=== PATIENT | female | born 1955 | race Caucasian/White ===

== ENCOUNTER 2019-01-04 02:00 | Emergency (ER) | payer MEDICARE, SELFPAY ==
[2018-01-26 10:07] VITALS: BMI 30.9
[2019-01-04 02:01] VITALS: BP 129/62; PULSE 99; RESP 20; TEMP 36.7; O2SAT 96; BMI 31.5
--- NOTE | 2019-01-04 02:31 | ED.VIS.GEN ---
History of Present Illness Chief Complaint: Back Informant: Patient Narrative: Stated she is being treated for sciatica mainly in her left buttock region but also is been bothering her on her right. She also feels some intermittent neuropathy in her left shoulder. This is been going on for approximately 6 weeks. She is being worked up by her family doctor. She has had some steroids with dexamethasone. She is been using Vicodin intermittently as well as intermittent Flexeril since July for her back. No injury. She did have x-rays. She is waiting on insurance for an MRI to rule out lumbar radiculopathy. She denies any loss of bowel or bladder function. Try to get an appointment to his office today for worsening pain but was unable to be seen so came in for pain control tonight. Current severity is moderate. Worse by bending and movement. - Past Medical History (1) Actinic keratosis Status: Chronic Comment: actinic lesion left mid dorsal forearm actinic lesion right upper cheek/right lower eyelid 3 mm actinic lesion right anterolateral arm (2) Benign keratosis Status: Chronic Comment: 4 mm benign keratosis left outer arm 1 cm benign keratosis dorsum right big toe near the naili (3) Family history of skin cancer Status: Chronic (4) Neoplasm of unspecified behavior of bone, soft tissue, and skin Status: Chronic Comment: 4 mm cutaneous horn lesion upper central forehead 4 mm erythematous lesion right anterolateral distal leg (5) Smoker Status: Chronic Past Medical History - Allergies and Home Meds Allergies/Adverse Reactions: Allergies Penicillins Allergy (Severe, Verified 01/04/19 02:00) Anaphylaxis tramadol Adverse Reaction (Verified 01/04/19 02:03) Nausea/Vom/Diarrhea BEE STINGS Allergy (Severe, Uncoded 01/04/19 02:00) Anaphylaxis Primary Care Physician: Flo Lopez DO [Primary Care Provider] - Prior records reviewed: Yes Past Medical History: - - See problem list Surgical History: - - Reviewed Smoking Status: Current every day smoker Alcohol: None Drugs: None Review of Systems General: Denies: Chills, Fever, Sweats Eyes: Denies: Visual changes - bilaterally, Diplopia ENT: Denies: Rhinorrhea, Sore throat Cardiovascular: Denies: Chest pain, Palpitations Respiratory: Denies: Dyspnea, Cough, Dyspnea on exertion Gastrointestinal: Denies: Abdominal pain, Nausea, Vomiting, Diarrhea, Melena, Hematochezia Genitourinary: Denies: Dysuria, Hematuria, Frequency Musculoskeletal: Reports: Back pain, Extremity Pain Skin: Denies: Rash, Wounds Neurological: Denies: Headache, Weakness, Numbness Physical Exam Vital Signs/Narrative: Vital Signs Temp Pulse Resp BP Pulse Ox 01/04/19 02:01 98.1 F 99 20 H 129/62 H 96 General: Well nourished, Well developed, No Acute Distress Head: Normocephalic, Atraumatic Eyes: Perrl, EOMI ENT: Moist mucous membranes, No rhinorrhea Neck: Supple, Nontender Cardiovascular: Regular rate, Regular rhythm, No murmurs Respiratory: No distress, CTA bilaterally, Chest nontender Abdomen: Soft, Nontender, Nondistended, Normal bowel sounds Back: Normal Inspection, - - Recently range of motion of the low back secondary to discomfort in the sciatic notch of the legs. Negative for: Nontender, CVA tenderness, Spinal tenderness Extremities: Nontender, No edema, - - Positive straight leg raise bilaterally. Normal pulses of the lower extremities bilateral.. Negative for: Calf Tenderness Skin: Normal color, No rash Neurological: Alert, Oriented x3, Cranial nerves II-XII grossly intact, Normal Strength, Normal Sensation Psychological: Normal affect, Normal Mood Diagnostic/Tx/Re-eval - Medical Decision Making Patient given injection of hydromorphone and Norflex. On reevaluation her pain is almost completely resolved. Resting comfortably. She has [place] tablets at home that she will continue to take. I discussed she could take a second 1 if needed as she is only instructed to take 1 every 6 hours. I do not think she has a cauda equina syndrome. I do not think she has an acute vascular emergency. I do not feel she has a aortic or iliac clot. She has warm and well-perfused lower legs with normal pulses. At this time I feel she can follow-up as an outpatient ED Disposition - Plan for ED Patient: Disposition: Home or Assisted Living Diagnosis: Lumbar radiculopathy Instructions: BACK PAIN w/ SCIATICA Referrals: Flo Lopez DO [Primary Care Provider] -
[2019-01-04] MEDS: HYDROmorphone 1 MG/ML Syringe IM (02:43)
[2019-01-04] MEDS: Orphenadrine 60 MG/2 ML Ampul IM (02:44)
[2019-01-04 03:26] VITALS: BP 130/68
== END 2019-01-04 03:26 | disposition home or self-care (01) ==
LOC: ED 03:14
PROVIDERS: Emergency Provider Emergency Medicine; Family Provider Family Medicine; PCP Family Medicine
DX: M54.16 Radiculopathy, lumbar region (principal); F17.200 Nicotine dependence, unspecified, uncomplicated; G62.9 Polyneuropathy, unspecified
CPT/HCPCS: 96372; 99282

== ENCOUNTER 2019-01-08 06:27 | Emergency (ER) | payer MEDICARE, SELFPAY ==
[2019-01-08 06:28] VITALS: BP 132/80; PULSE 86; RESP 18; TEMP 35.9; O2SAT 97; BMI 32.6
--- NOTE | 2019-01-08 06:52 | MRI_ITS ---
STUDY: MRI LUMBAR SPINE WITHOUT CONTRAST REASON FOR EXAM: Female, 63 years old. Left leg pain greater than right. TECHNIQUE: Standardized fat and water weighted pulse sequences were obtained in the sagittal and axial planes. COMPARISON: None FINDINGS: T12-L1: Normal endplates. Normal disc height, hydration and morphology. Normal bilateral facet joints. Normal central canal and bilateral lateral recesses. Normal bilateral intervertebral neural foramina. Normal lumbar lordosis. There is no substantial scoliosis. Normal conus medullaris that terminates at the L1 level. L1-2: Disc desiccation is present with no significant disc bulge, spinal canal narrowing or foraminal narrowing. No significant disc space loss with minimal facet arthropathy at this level. L2-3: Disc desiccation is present with no significant disc bulge, spinal canal narrowing or foraminal narrowing. No significant disc space loss with minimal facet arthropathy at this level. L3-4: Disc desiccation is present with no significant disc bulge, spinal canal narrowing or foraminal narrowing. No significant disc space loss with minimal facet arthropathy at this level. L4-5: Disc desiccation is present with no significant disc bulge, spinal canal narrowing or foraminal narrowing. No significant disc space loss with minimal facet arthropathy at this level. L5-S1: Disc desiccation and decreased disc space with broad-based disc bulge is present. There is a left disc extrusion extending to the left lateral recess abutting the exiting nerve root at this location and likely causing patient's symptomology. Normal visualized sacral ala. Normal visualized paraspinous soft tissue structures. MRI/Spine Lumbar (Routine) IMPRESSION: L5/S1 degenerative disc changes with left disc extrusion extending to the left lateral recess abutting the exiting S1 nerve root, clinically correlate for exiting left S1 nerve root radiculopathy. Electronically Signed: Nicholas Nina DO at 9:22 EST , Service support ,
--- NOTE | 2019-01-08 06:54 | ED.DCSUM_ITS ---
History of Present Illness Informant: Patient Onset: Weeks - 5 Context: Gradual Onset Timing: Continuous Quality: Aching Location: Lumbar, Buttock, Right Leg, Left Leg Current Severity: Severe Maximum Severity: Severe Worsened by: improves with: Movement, Ambulation, Night time pain Relieved by: Nothing Associated Symptoms: Tingling, Radiation to Right Leg, Radiation to Left Leg, - - No bowel or bladder dysfunction. No saddle anesthesia but numbness goes down both legs and her legs are feeling weak. Narrative: No history of prior back surgeries. Has had x-rays that were unremarkable, several rounds of steroids, currently has been on steroids for about 4 days w hich are not helping, pain is getting more severe despite taking Percocet which seems to be doing nothing. In the last 5 weeks she has noticed episodes of weakness in both legs, but that has become more persistent now she is having some trouble walking and her legs feel like Jell-O. She has not fallen or had any injuries due to this. She denies bowel or bladder dysfunction. No saddle anesthesia but she is having numbness down both legs and the pain goes down to the feet as well as the tingling. No abdominal pain. No fevers. Not an IV drug abuser. <Charli Eaton - Last Filed: 01/08/19 07:10> <Myrna Cosby - Last Filed: 01/08/19 09:54> Chief Complaint: Lower Extremity Injury - Past Medical History (1) Actinic keratosis Status: Chronic Comment: actinic lesion left mid dorsal forearm actinic lesion right upper cheek/right lower eyelid 3 mm actinic lesion right anterolateral arm (2) Neoplasm of unspecified behavior of bone, soft tissue, and skin Status: Chronic Comment: 4 mm cutaneous horn lesion upper central forehead 4 mm erythematous lesion right anterolateral distal leg <Charli Eaton - Last Filed: 01/08/19 07:10> Past Medical History Surgical History: - - Reviewed Lives: With Family Smoking Status: Current every day smoker Drugs: None <Charli Eaton - Last Filed: 01/08/19 07:10> <Myrna Cosby - Last Filed: 01/08/19 09:54> - Allergies and Home Meds Allergies/Adverse Reactions: Allergies Penicillins Allergy (Severe, Verified 01/08/19 06:34) Anaphylaxis tramadol Adverse Reaction (Verified 01/08/19 06:34) Nausea/Vom/Diarrhea BEE STINGS Allergy (Severe, Uncoded 01/08/19 06:34) Anaphylaxis Primary Care Physician: Flo Lopez DO [Primary Care Provider] - Review of Systems General: Denies: Chills, Fever, Sweats Eyes: Denies: Visual changes - bilaterally, Diplopia ENT: Denies: Rhinorrhea, Sore throat Cardiovascular: Denies: Chest pain, Palpitations Respiratory: Denies: Dyspnea, Cough, Dyspnea on exertion Gastrointestinal: Denies: Abdominal pain, Nausea, Vomiting, Diarrhea, Melena, Hematochezia Genitourinary: Denies: Dysuria, Hematuria, Frequency Musculoskeletal: Reports: Back pain. Denies: Neck pain, Extremity Pain Skin: Denies: Rash, Wounds Neurological: Reports: Weakness, Numbness. Denies: Headache <Charli Eaton - Last Filed: 01/08/19 07:10> Physical Exam Vital Signs/Narrative: Vital Signs Temp Pulse Resp BP Pulse Ox 01/08/19 06:28 96.6 F L 86 18 132/80 H 97 Inital Vital Signs reviewed: Yes General: Well nourished, Well developed Head: Normocephalic, Atraumatic Eyes: Perrl, EOMI ENT: Moist mucous membranes, No rhinorrhea Neck: Supple, Nontender Cardiovascular: Regular rate, Regular rhythm, No murmurs Respiratory: No distress, CTA bilaterally, Chest nontender Abdomen: Soft, Nontender, Nondistended, Normal bowel sounds Back: Normal Inspection, Nontender, Positive SLR - Right - Ipsilateral only, Positive SLR - Left - Ipsilateral only, - Extremeties: Nontender, No edema Skin: Normal color, No rash Neuro: Alert, Oriented, Weakness - Bilateral lower extremity weakness with bilateral knee extension as well as flexion, the latter is a little stronger. Has strong feet dorsiflexion but weak plantarflexion., Parasthesia - Slightly decreased sensation both lower extremities, - - Hyporeflexic throughout both lower extremities, symmetric. No clonus. Downgoing toes. Psychological: Normal affect, Normal Mood <Charli Eaton - Last Filed: 01/08/19 07:10> Vital Signs/Narrative: Vital Signs Temp Pulse Resp BP Pulse Ox 01/08/19 06:28 96.6 F L 86 18 132/80 H 97 <Myrna Cosby - Last Filed: 01/08/19 09:54> Diagnostic/Tx/Re-eval - Medical Decision Making Patient has objective bilateral lower extremity weakness and difficulty walking as a result, along with symptoms and exam findings consistent with bilateral sciatica. She does not have all of the classic cauda equina symptoms, however with the leg weakness I think a stat MRI is indicated in order to rule out cauda equina and conus medullaris syndromes. Nursing will obtain post void residual urine via bedside bladder scan. She has had no issues with saddle anesthesia or bowel incontinence so I do not think she has to have a rectal exam right now, as it will very likely be normal. I still think an MRI is indicated. Patient was seen just prior to shift change and checked out to the oncoming ED physician. Discussed at length with patient she is comfortable with this plan. IV morphine ordered. <Charli Eaton - Last Filed: 01/08/19 07:10> - Medical Decision Making The patient's examination at this time is done. Her MRI shows L5-S1 left nerve root impingement no signs of cauda equina please see the above MRI note finding Exam she states she feels markedly better she has full range of motion of both lower extremities without difficulty no neurologic abnormalities she is able to walk without difficulty, she is comfortable discharge home further management evaluation for the symptoms with her attending physicians and outpatient providers she indicates she has appointment to see them early this week and she will return for change in symptoms, she is wearing a few extra Percocet tablets she will be given four Home stable Impression final L5-S1 nerve root compression left on MRI <Myrna Cosby - Last Filed: 01/08/19 09:54> Disposition: Home <Myrna Cosby - Last Filed: 01/08/19 09:54> ED Disposition <Charli Eaton - Last Filed: 01/08/19 07:10> <Myrna Cosby - Last Filed: 01/08/19 09:54> - Plan for ED Patient: Referrals: Flo Lopez DO [Primary Care Provider] -
[2019-01-08] MEDS: Morphine 4 MG/ML Syringe IV (07:03)
[2019-01-08 07:24] LABS: Absolute Lymphocyte Count 1.28 X10^3/uL (0.83-4.51); Absolute Neutrophil Count 13.3 X10^3/uL (2.0-7.7); Basophil# 0.04 X10^3/uL; Basophil% 0.3 % (0-1); Eosinophil# 0.04 X10^3/uL; Eosinophils% 0.3 % (0-5); Hematocrit 44.3 % (37-47); Hemoglobin 14.5 g/dL (12.0-15.0); Lymphocyte # 1.28 X10^3/ul (4.0); Lymphocyte % 8.3 % (19-41); Mean Corp Hgb Conc 32.7 g/dL (32-36); Mean Corpuscular Hgb 30.4 pg (27.0-32.0); Mean Corpuscular Volume 92.9 fL (81-99); Mean Platelet Vol. 10.2 fl (6.2-12.0); Monocyte# 0.64 X10^3/uL; Monocyte% 4.2 % (0-10); NRBC Flagged by Analyzer 0 % (0-5); Neutrophil # 13.27 X10^3/uL (2.7-7.7); Neutrophil % 86.3 % (47-70); Platelet Count 273 K/mm3 (150-450); RBC Distribution Width CV 14.7 % (11.6-14.6); RBC Distribution Width SD 50.4 fl (35.1-43.9); Red Blood Count 4.77 M/mm3 (4.2-5.4); White Blood Count 15.4 K/mm3 (4.4-11.0)
--- NOTE | 2019-01-08 07:35 | ED.RN ---
pt complete mri questionaire and faxed to MRI.
[2019-01-08 07:37] LABS: Anion Gap 9 (5-15); BUN 16 mg/dL (7-18); BUN/Creat Ratio 18.3 RATIO (10-20); Calcium,Total 8.9 mg/dL (8.5-10.1); Chloride 99 mmol/L (98-107); Creatinine, Serum 0.88 mg/dL (0.55-1.02); EST Glomerular Filtration Rate 69 mL/min (>60); Est Glom Filt Rate - Afr Amer 83 mL/min (>60); Estimated Creatinine Clearance 52.72 ml/min; Glucose 102 mg/dL (74-106); Potassium 3.7 mmol/L (3.5-5.1); Sodium Level 138 mmol/L (136-145)
--- NOTE | 2019-01-08 07:50 | ED.RN ---
called imaging regarding mri. tech to return call after verifying [facility] [place]
[2019-01-08] MEDS: HYDROmorphone 0.5 MG/0.5 ML SYRINGE IV (08:16)
[2019-01-08 09:17] LABS: Bacteria 0 SEEN /hpf (None Seen); Mucous, Urine 0 SEEN /hpf (<or=2+); Red Blood Cells-Urine 0 SEEN /hpf (0-5); White Blood Cells 0 SEEN /hpf (0-5)
[2019-01-08 09:21] LABS: Color, Urine Yellow (Yellow); Glucose, Dipstick Normal (Normal); Ketone-Dipstick Negative (Negative); Leukocyte Esterase-Dipstick Negative /ul (Negative); Nitrite-Dipstick Negative (Negative); Occult Blood-Urine Negative /ul (Negative); Protein-Dipstick Negative (Negative); Urine Bilirubin Dipstick Negative (Negative); Urine Clarity Clear (Clear); Urine Urobilinogen Normal (Normal); Urine pH 6.5 (5.0 - 8.0)
[2019-01-08 09:29] LABS: Squamous Epithelial Cells - UA 0-5 SEEN /hpf (5-10)
--- NOTE | 2019-01-08 09:54 | ED.DEP ---
ED Disposition - Plan for ED Patient: Diagnosis: Lumbar disc disease L5-S1 Instructions: Relieving Back Pain Referrals: Flo Lopez DO [Primary Care Provider] - Additional Instructions: You have findings of lumbar disc disease with protrusion of the disc at L5-S1 follow-up with your outpatient providers return for change in symptoms
--- NOTE | 2019-01-08 09:58 | ED.DEP ---
ED Disposition - Plan for ED Patient: Diagnosis: Lumbar disc disease L5-S1 Instructions: Relieving Back Pain Prescriptions: Oxycodone HCl/Acetaminophen [Percocet 5/325] 1 tab PO Q4H PRN PRN #7 tab PRN Reason: Pain Prescription Printed Referrals: Flo Lopez DO [Primary Care Provider] - Additional Instructions: You have findings of lumbar disc disease with protrusion of the disc at L5-S1 follow-up with your outpatient providers return for change in symptoms
[2019-01-08 10:13] VITALS: BP 134/82; PULSE 87; RESP 16; TEMP 36.7; O2SAT 99
== END 2019-01-08 10:23 | disposition home or self-care (01) ==
LOC: ED 07:28
PROVIDERS: Emergency Medicine; Emergency Provider Emergency Medicine; Family Provider Family Medicine; PCP Family Medicine
DX: G54.4 Lumbosacral root disorders, not elsewhere classified (principal); R26.2 Difficulty in walking, not elsewhere classified; R53.1 Weakness; F17.200 Nicotine dependence, unspecified, uncomplicated; Z88.0 Allergy status to penicillin; Z88.8 Allergy status to other drugs, medicaments and biological substances; Z79.52 Long term (current) use of systemic steroids; Z79.899 Other long term (current) drug therapy
CPT/HCPCS: 72148; 80048; 81001; 85025; 96374; 96375; 99283; A4216

== ENCOUNTER → 2019-04-20 07:43 | Outpatient (CLI) | payer MEDICARE, SELFPAY ==
[2019-04-19 11:19] VITALS: BMI 32.6
[2019-04-20 08:41] LABS: AST(SGOT) 13 U/L (15-37); Alanine Aminotransfer ALT/SGPT 24 U/L (13-56); Albumin, Serum 3.6 g/dL (3.2-5.0); Alkaline Phosphatase 154 U/L (45-117); Bilirubin, Direct 0.09 mg/dL (0.00-0.30); Cholesterol 172 mg/dL (200); Globulin 4.3 g/dL (2.2-4.2); High Density Lipoprotein 62 mg/dL; Protein, Total 7.9 g/dL (6.4-8.2); Triglycerides 161 mg/dL; Very Low Density Lipoprotein 32 mg/dL (5-40)
== END ==
PROVIDERS: PCP Student in an Organized Health Care Education/Training Program; Referring Provider Internal Medicine Cardiovascular Disease; Visit Provider Internal Medicine Cardiovascular Disease
DX: I25.10 Atherosclerotic heart disease of native coronary artery without angina pectoris (principal); E78.5 Hyperlipidemia, unspecified
CPT/HCPCS: 36415; 80061; 80076

== ENCOUNTER → 2019-05-02 10:30 | Outpatient (CLI) | payer MEDICARE, SELFPAY ==
[2019-04-19 11:19] VITALS: BMI 32.6
--- NOTE | 2019-05-02 10:35 | MRI_ITS ---
EXAM DESCRIPTION: MR Lumbar Spine CLINICAL HISTORY: 63 years Female, LBP, bilat leg weakness/burning; hx prior surgery 11/2018 COMPARISON: Previous MRI of the lumbar spine obtained on 01/08/2019. TECHNIQUE: MRI lumbar spine was performed utilizing T1 and fast spin-echo T2-weighted and STIR weighted sagittal images followed by angled axial T1 and T2-weighted images obtained from above the L1-L2 intervertebral disc space level down to the L5-S1 level. Contrast material was intravenously injected and axial and sagittal postcontrast T1-weighted images of the lumbar spine were obtained. FINDINGS: T12-L1: On the sagittal images, the intervertebral disc and neural foramina appear to be normal. L1-L2: A minimally bulging disc is noted at this level with no evidence of disc herniation or spinal stenosis and neural foramina appear to be normal. L2-L3:A minimally bulging disc is noted at this level with no evidence of disc herniation or spinal stenosis and neural foramina appear to be normal. L3-L4: A minimally bulging disc is noted at this level with no evidence of disc herniation or spinal stenosis and neural foramina appear to be normal. L4-L5: The intervertebral disc and neural foramina appear to be normal. L5-S1: The patient has had a left hemilaminectomy at this level with resection of a herniated disc which was previously noted on the prior MRI obtained on 01/08/2019. Contrast material was intravenously injected and shows residual epidural fibrosis at the level of the previously resected herniated disc and epidural fibrosis noted at the left hemilaminectomy defect. No recurrent disc herniation or spinal stenosis is seen. Mild central foraminal stenosis is noted bilaterally without compression of the exiting L5 nerve roots.. Conus medullaris and lumbar nerve roots: The conus medullaris ends at the T12-L1 level and appears to be normal. The lumbar nerve roots appear to be normal. Lumbar spine: The lumbar spine appears to be in good position and alignment. The bone marrow of the lumbar vertebral bodies appears to be normal. No vertebral body compression fractures are seen. There is mild facet arthropathy noted at the L4-5 and L5-S1 levels bilaterally. MRI/Spine Lumbar W/WO Contrast IMPRESSION: Status post left hemilaminectomy at the L5-S1 level with residual epidural fibrosis and no evidence of recurrent disc herniation or spinal stenosis. Electronically Signed: Fuentes Serrato, at 13:23 EST Tel , Service support ,
== END ==
PROVIDERS: PCP Student in an Organized Health Care Education/Training Program
DX: Z48.811 Encounter for surgical aftercare following surgery on the nervous system (principal); M54.16 Radiculopathy, lumbar region
CPT/HCPCS: 72158; A9575

== ENCOUNTER 2019-05-08 10:30 | Outpatient (RCR) | payer MEDICARE, SELFPAY ==
--- NOTE | 2019-02-17 16:00 | HP.PTEVAL_ITS ---
Patient's Visit Information AUDREY OROURKE is a 63 year old F referred to Physical Therapy by MIKY DOMINGUEZ with a diagnosis of LUMBAR RADICULOPATHY. Date of Evaluation: 02/17/19 Physical Therapist: Leelee Bradford PT, Cert MDT - Visit Plan Frequency: 3x /Week Duration: 6-8 WKS Plan: MONITOR TOE SYMPTOMS AND INCLUDE TOE EX'S. 3X'S A WEEK X 6-8 WEEKS FOR POSTURE CORRECTION/STRENGTHENIG, INSTRUCTION IN PROPER BODY MECHANICS. CORE STRENGTHENING WITH A NEURTRAL SPINE ONLY UNTIL OK'D BY SURGEON. BACK BRACE AT ALL TIMES EXCEPT LYING DOWN UNTIL CLEARED TO WEAN OUT OF BRACE BY SURGEON. GAIT TRAINING. KIMBERLY LE ROM, STRETCHING AND STRENGTHENING. - Subjective Findings: S/P LUMBAR SURGERY 01/13/19. Work/Leisure: RETIRED. Disability: NO. Present symptoms: INTERMITTENT PAIN FROM THE KNEES DOWN. NO BACK PAIN. KIMBERLY F OOT AND HAND NUMBNESS, TINGLING, BURNING AND FREEZING. Present since: ABOUT 7 WEEKS BEFORE SURGERY. Pain Scale: WORST - 15/10, LEAST 0/10. Currently: 0/10. Commenced as a result of: BLOCKING A DOOR AND GOT PUSHED IN HER SIDE THEN THE NEXT DAY THE PAIN STARTED. TREATED IT HERSELF FOR A WEEK THEN WENT TO URGENT CARE. Symptoms at onset: LEFT LEG PAIN. EVENTUALLY HAD TO BE CARRIED IN TO THE ED. Worse: I WAKE UP WITH IT. Better: NOTHING HELPS EXCEPT PAIN MEDICINE. I'VE TRIED EVERYTHING. Disturbed sleep: YES. Previous history/Previous treatment: PATIENT DENIES ANY HISTORY OF BACK PROBLEMS PRIOR TO THIS EPISODE STARTED TOWARD THE END OF NOV 2018. Coughing/sneezing/straining: NEGATIVE. Gait: USING A WALKER OUTSIDE OF HOME BUT FURNITURE WALKS AT HOME. Difficulty initiating urinatin: YES - STATES HER SURGEON IS AWARE. Accidents: NO. Unexplained weight loss: NO. Imaging: NONE SINCE THE SURGERY. MRI PRIOR TO THE SURGERY 01/08/19: L5/S1 degenerative disc changes with left disc extrusion extending to the. left lateral recess abutting the exiting S1 nerve root, clinically. correlate for exiting left S1 nerve root radiculopathy. PMH: HTN, ASTHMA, HEART BLOCKAGE DISCOVERED BEFORE SURGERY - HEART CATH PENDING WHEN BACK SURGEON RELEASES HER. OTHER: PATIENT REPORTS SHE COULD WALK AND RUN BEFORE THIS INJURY. RELEASED TO DRIVE TWO WEEKS AFTER SURGERY. CURRENT RESTRICTIONS: NO LIFTING > 15 LBS. NO BENDING OR TWISTING. KEEP WEARING BACK BRACE UNTIL SURGICAL FOLLOW UP NEXT WEDNESDAY. REPORTS SHE HAS NOT HAD ANY TROUBLE WITH THE INCISION. STATES SHE HAS NOT BEEN DOING ANY EX'S EXCEPT ROTATING HER ANKLES. PATIENT REPORTS SHE HAS FALLEN TWICE SINCE THE SURGERY. ONE TIME SHE HAD A SNEEZING ATTACK AND SHE WENT DOWN ABOUT 3 WEEKS AFTER SURGERY (FACE PLANT) THEN FELL AGAIN ABOUT A WEEK AGO WHEN CAT GOT TANGLED UP UNDER HER FEET IN THE KITCHEN WITHOUT HER WALKER (I JUST WENT DOWN ON MY KNEE AND COULD GET BACK UP). - Objective Sitting/Standing Posture: POOR. Lordosis: REDUCED. Active Correction of posture: NE. Other Observations: INDEP GAIT INTO PT WITH FWW AND NO LOB. PATIENT WALKS WITH INCREASED TRUNK FLEXION AND DECREASED EVITA. PATIENT IS UE DEPENDENT TO TRANSFER FROM SIT TO STAND. Motor deficit: KIMBERLY LE WEAKNESS GROSSLY 4/5 WITH MMT'ING. ABLE TO MOVE TOES THROUGH FULL ROM AND RESIST MMT'ING BUT PATIENT REPORTS THEY DO NOT FEEL RIGHT. Sensory deficit: KIMBERLY LE LIGHT TOUCH SENSATION APPEARS INTACT AND SYMMETRICAL AND PATIENT REPORTS BEING ABLE TO FEEL HER TOES BUT THEY DON'T FEEL RIGHT. ROM deficit: TIGHT KIMBERLY LE HS'S. Reflexes: UNABLE TO ELICIT KIMBERLY LE DTR'S. Dural Signs: POSITIVE KIMBERLY LE'S. Lumbar mvmt loss: NT. Core strength: POOR. Palpation: INCISION LOOKS GOOD WITHOUT ANY SIGNS OF INFECTION. - Goals Goal 1:: DECREASE C/O KIMBERLY LE SX'S. Goal Time Frame: 4-6 Weeks Goal 2:: IMPROVE PERSONAL CARE, LIFTING, WALKING, SITTING, STANDING, SLEEP, SOCIAL LIFE, TRAVEL AND HOMEMAKING FUNCTION Goal Time Frame: 4-6 Weeks Goal 3:: INDEP AND SAFE GAIT ON ALL SURFACES WITH LEAST ASSISTIVE DEVICE Goal Time Frame: 4-6 Weeks Goal 4:: INDEP HEP FOR CONTINUED IMPROVEMENT ONCE FORMAL PHYSICAL THERPAY CONCLUDES. Goal Time Frame: 4-6 Weeks - Rehabilitation Potential Rehabilitation Potential: Good - Anticipated Interventions Patient/Client Instruction: Educate patient on: Condition, Plan of Care, Risk Factors, Benefits of Fitness Program For the Purpose of:: To improve self management Therapeutic Exercise to Include: Strength training, Body mechanics, Postural training, Gait and locomotor training, Dynamic Lumbar Stabilization, Scapular Strength/Stabilization For the Purpose of:: To decrease pain, To improve muscle performance and motor function, To increase tolerance to activity/condition/position, To improve ability of physical actions for home/community/work/leisure, To improve gait and locomotor functions Thank you for the opportunity to evaluate your patient. For Medicare and Medicare HMO plans, please review the plan of care and approve it. It will need to be FAXED BACK to us at [phone] for Medicare purposes. For Medicare only, by signing this I certify the plan of care. Please let me know if there are questions or concerns regarding this plan of care. Physician Signature: Date:
--- NOTE | 2019-03-17 11:57 | HP.PTREVAL_ITS ---
MIKY DOMINGUEZ, It has been my pleasure to treat AUDREY OROURKE over the last 10 visits for LUMBAR RADICULOPATHY. Please see the progress note below for an update on the physical therapy plan of care! Subjective: PATIENT REPORTS SHE IS A LOT BETTER. SHE REPORTS HER RIGHT LEG IS A LOT BETTER AND HER HANDS ARE PRETTY MUCH BACK TO NORMAL BUT HER LEFT LEG IS STILL VERY WEAK AND NOT IMPROVING. YESTERDAY AND TODAY HAVING SOME PAIN FROM THE KNEE DOWN AND THIS HAS BEEN COMING AND GOING. KIMBERLY DUEÑAS PAIN AND BURNING. ALSO HAVING BURNING IN TOES LEFT > RIGHT. LASTS TILL ABOUT MID DAY THEN GOES AWAY. AT LAST SURGICAL FOLLOW UP SHE REPORTS THE DOCTOR STATED WALKING WITH A WALKER MIGHT BE GOOD IT GETS. STATES SHE BEGGED FOR THERAPY.HAS NOT SEEN THE SURGEON SINCE STARTING THERAPY. PATIENT REPORTS SHE CALLED HER SURGEONS OFFICE TO CLARIFY HER RESTRICTIONS AND THEY TOLD HER SHE HAS NO RESTRICTIONS AT THIS TIME. NO LONGER USING A WALKER OR A CANE. WEANING OUT OF BACK BRACE. WEARS IT IF HER BACK GETS TIRED. PROLONGED STANDING MORE THAN ABOUT 10 MINUTES CAUSES A LOT OF BACK WEAKNESS AND SOME PAIN. USUALLY CAN'T FINISH DOING DISHES WITHOUT NEEDING TO SIT DOWN AND LEFT LEG STARTS TO GIVE OUT. HAS NOT FOLLOWED UP WITH [employer]INE REPAIRER YET. STATES SHE HAS A SURGICAL FOLLOW UP PENDING BUT NOT SURE WHEN. STATES SHE IS STILL LIMITED ON STEPS DUE TO LEFT LEG WEAKNESS. HAS DRIVEN TWICE NOW. DOES BETTER IN VAN. HARD TO GET IN AND OUT OF CAR. Objective/Function: PATIENT WAS SEEN TODAY FOR RE-ASSESSMENT OF PROGRESS TOWARD THE SET PT GOALS AND THE NEED FOR FURTHER PHYSICAL THERAPY VS READINESS FOR DISCHARGE. PATIENT IS MAKING SLOW PROGRESS WITH PT IN TERMS OF RIGHT LE FUNCTION BUT LLE IS NOT IMPROVING MORE SLOWLY. SHE IS A GOOD CANDIDATE TO CONTINUE PT AT THIS POINT AND PATIENT IS AGREEABLE. HER GAIT IS IMPROVING BUT HAS NOT NORMALIZED. SHE AMBULATES INDEP'LY INTO PT TODAY WITHOUT ANY ASSISTIVE DEVICES BUT WITH VERY SLOW EVITA AND A WIDE BASE OF SUPPORT. SHE IS UNSTEADY BUT ABLE TO REGAIN BALANCE INDEP'LY. SHE IS STILL UE DEPENDENT TO TRANSFER FROM SIT TO STAND AND REVERSE. Motor deficit: PATIENT STILL HAS KIMBERLY LE WEAKNESS GROSSLY 4/5 IN LLE AND 5/5 IN RIGHT LE EXCEPT HIP 4/5. ABLE TO MOVE TOES THROUGH FULL ROM AND RESIST MMT'ING BUT PATIENT REPORTS THEY DO NOT FEEL RIGHT. Sensory deficit: KIMBERLY LE LIGHT TOUCH SENSATION APPEARS INTACT AND SYMMETRICAL AND PATIENT REPORTS BEING ABLE TO FEEL HER TOES BUT THEY DON'T FEEL RIGHT. PATIENT REPORTS THEY DON'T FEEL TIGHT BEFORE THOUGH. LEFT IS WORSE THAN RIGHT. THEY TINGLE AND BURN BUT NOT BAD BEFORE. ROM deficit: TIGHT KIMBERLY LE HS'S. Dural Signs: POSITIVE KIMBERLY LE'S. Lumbar mvmt loss: FLEX: MIN TO MOD. EXT: ROXANA. RIGHT SG: MOD. LEFT SG: ROXANA - PINCHES. HAS TO MAKE VERY WIDE KASSIE TO PERFORM LUMBAR FLEXION TO AVOID LOB. Core strength: POOR. Palpation: INCISION IS WELL HEALED. Plan Plan: NO RESTRICTIONS. PROGRESS SLOWLY. WORK ON BALANCE. MONITOR TOE SYMPTOMS AND INCLUDE TOE EX'S. 3X'S A WEEK X 4WEEKS FOR POSTURE CORRECTION/STRENGTHENIG, INSTRUCTION IN PROPER BODY MECHANICS. CORE STRENGTHENING PROGRESS ROM TOLERATED. BACK BRACE NEEDED. GAIT TRAINING. KIMBERLY LE ROM, STRETCHING AND STRENGTHENING. Goals Goal 1:: DECREASE C/O KIMBERLY LE SX'S. Goal Time Frame: 4-6 Weeks Goal Progress: Progressing Goal 2:: IMPROVE PERSONAL CARE, LIFTING, WALKING, SITTING, STANDING, SLEEP, SOCIAL LIFE, TRAVEL AND HOMEMAKING FUNCTION Goal Time Frame: 4-6 Weeks Goal Progress: Progressing Goal 3:: INDEP AND SAFE GAIT ON ALL SURFACES WITH LEAST ASSISTIVE DEVICE Goal Time Frame: 4-6 Weeks Goal Progress: Progressing Goal 4:: INDEP HEP FOR CONTINUED IMPROVEMENT ONCE FORMAL PHYSICAL THERPAY CONCLUDES. Goal Time Frame: 4-6 Weeks Goal Progress: Progressing Anticipated Interventions Patient/Client Instruction: Educate patient on: Condition, Plan of Care, Risk Factors, Benefits of Fitness Program For the Purpose of:: To improve self management Therapeutic Exercise to Include: Strength training, Body mechanics, Postural training, Gait and locomotor training, Dynamic Lumbar Stabilization, Scapular Strength/Stabilization For the Purpose of:: To decrease pain, To improve muscle performance and motor function, To increase tolerance to activity/condition/position, To improve ability of physical actions for home/community/work/leisure, To improve gait and locomotor functions Please do not hesitate to contact me at [phone] by phone or Fax: if you have questions or concerns regarding this new plan of care! Sincerely, Leelee Bradford, PT, Cert MDT
--- NOTE | 2019-04-14 11:27 | HP.PTREVAL_ITS ---
MIKY DOMINGUEZ, It has been my pleasure to treat AUDREY OROURKE over the last 19 visits for LUMBAR RADICULOPATHY. Please see the progress note below for an update on the physical therapy plan of care! Subjective: PATIENT REPORTS THAT SHE IS CONTINUING TO MAKE PROGRESS BUT SHE IS STILL VERY WEAK IN HER LEGS LEFT > RIGHT. PATIENT SHE DOESN'T HAVE ANY PAIN ANY WHERE EXCEPT HER SHINS AND FEET. STATES HER HANDS SHAKE NOW THOUGH. PATIENT REPORTS HER BACK IS FINE BUT IT GETS TIRED AND IT GETS TENDER AFTER SOME OF THE EX'S. ANOTHER MRI HAS BEEN ORDERED AND APPROVED BY INSURANCE BUT NOT SCHEDULED YET. PATIENT REPORTS THE DOCTOR TOLD HER SHE SHOULD BE FURTHER ALONG THAN WHAT SHE IS SO HE ORDERED THE MRI. FAMILY DOCTOR MIKE'T PENDING NEXT WEEK - STATES SHE WOULD LIKE A SECOND OPINION FROM ANOTHER NEUROSURGEON. PATIENT REPORTS SHE TOOK A PERCOCET THE OTHER DAY FOR HER LOWER LEG AND FOOT PAIN AND IT DIDN'T HELP AND SHE HAD A REACTION TO IT. SHOWING BRUISING ON HER ARMS WHERE SHE SCRATCHED. PATIENT REPORTS HER LEFT LEG IS GETTING A LITTLE STRONGER NOW AND SHE CAN TELL FROM BEING ABLE TO INCREASE HER EXCERSES IN HERE AND GOING UP STEPS. SHE CAN WALK MORE TOO BUT IF SHE WALKS TOO MUCH HER BACK HURTS (WALKING ABOUT 1,000 FEET NOW (ON [address]). Objective/Function: PATIENT WAS SEEN TODAY FOR RE-ASSESSMENT OF PROGRESS TOWARD THE SET PT GOALS AND THE NEED FOR FURTHER PHYSICAL THERAPY VS READINESS FOR DISCHARGE. PATIENT IS CONTINUIING TO MAKE SLOW PROGRESS WITH PT IN TERMS OF RIGHT LE FUNCTION BUT ALSO LLE NOW. SHE IS A GOOD CANDIDATE TO CONTINUE PT AT THIS POINT AND PATIENT IS AGREEABLE. HER GAIT IS STILL IMPROVING IN TERMS OF DISTANCE BUT HAS NOT NORMALIZED. SHE AMBULATES INDEP'LY INTO PT TODAY WITHOUT ANY ASSISTIVE DEVICES BUT STILL WITH SLOW EVITA AND A WIDE BASE OF SUPPORT. SHE IS UNSTEADY BUT ABLE TO REGAIN BALANCE INDEP'LY. SHE IS STILL UE DEPENDENT TO TRANSFER FROM SIT TO STAND AND REVERSE BUT JUST WITH HANDS ON LEGS NOT ARMS OF CHAIR NOW. SHE HAS TO USE BOTH HANDS TO GET UP NOT JUST ONE. Motor deficit: PATIENT STILL HAS KIMBERLY LE WEAKNESS GROSSLY 4/5 IN LLE AND 5/5 IN RIGHT LE EXCEPT HIP 4/5. ABLE TO MOVE TOES THROUGH FULL ROM AND RESIST MMT'ING BUT PATIENT REPORTS THEY DO NOT FEEL RIGHT. PATIENT REPORTS HER TOE TIGHTNESS IS STILL BETTER THAN IT WAS ORIGINALLY BUT STAYING THE SAME NOW. Sensory deficit: KIMBERLY LE LIGHT TOUCH SENSATION APPEARS INTACT AND SYMMETRICAL AND PATIENT REPORTS BEING ABLE TO FEEL HER TOES BUT THEY DON'T FEEL RIGHT. THEY TINGLE AND BURN BUT NOT BAD BEFORE. ROM deficit: TIGHT KIMBERLY LE HS'S. Dural Signs: POSITIVE KIMBERLY LE'S. Lumbar mvmt loss: FLEX: MIN TO MOD. EXT: ROXANA. RIGHT SG: MOD. LEFT SG: ROXANA - CATCHES. STILL HAS TO MAKE VERY WIDE KASSIE TO PERFORM LUMBAR FLEXION TO AVOID LOB. Core strength: POOR Plan Plan: *Progress hip flexor/quad stretch to HEP next appt. *SUPERVISION TO CONTACT GUARD NEEDED WITH STANDING EX'S FOR SAFETY. SLOWLY WORK TOWARDS INDEP GYM PROGRAM WITH Stand Offer [employer]. NO RESTRICTIONS. PROGRESS SLOWLY. WORK ON BALANCE. MONITOR TOE SYMPTOMS AND INCLUDE TOE EX'S. FOR POSTURE CORRECTION/STRENGTHENIG, INSTRUCTION IN PROPER BODY MECHANICS. CORE STRENGTHENING PROGRESS ROM TOLERATED. BACK BRACE NEEDED. GAIT TRAINING. KIMBERLY LE ROM, STRETCHING AND STRENGTHENING. Goals Goal 1:: DECREASE C/O KIMBERLY LE SX'S. Goal Time Frame: 4-6 Weeks Goal Progress: Progressing Goal 2:: IMPROVE PERSONAL CARE, LIFTING, WALKING, SITTING, STANDING, SLEEP, SOCIAL LIFE, TRAVEL AND HOMEMAKING FUNCTION Goal Time Frame: 4-6 Weeks Goal Progress: Progressing Goal 3:: INDEP AND SAFE GAIT ON ALL SURFACES WITH LEAST ASSISTIVE DEVICE Goal Time Frame: 4-6 Weeks Goal Progress: Progressing Goal 4:: INDEP HEP FOR CONTINUED IMPROVEMENT ONCE FORMAL PHYSICAL THERPAY CONCLUDES. Goal Time Frame: 4-6 Weeks Goal Progress: Progressing Anticipated Interventions Patient/Client Instruction: Educate patient on: Condition, Plan of Care, Risk Factors, Benefits of Fitness Program For the Purpose of:: To improve self management Therapeutic Exercise to Include: Strength training, Body mechanics, Postural training, Gait and locomotor training, Dynamic Lumbar Stabilization, Scapular Strength/Stabilization For the Purpose of:: To decrease pain, To improve muscle performance and motor function, To increase tolerance to activity/condition/position, To improve ability of physical actions for home/community/work/leisure, To improve gait and locomotor functions Please do not hesitate to contact me at [phone] by phone or if you have questions or concerns regarding this new plan of care! Sincerely, Leelee Bradford, PT, Cert MDT
--- NOTE | 2019-06-06 12:45 | HP.PT.NRP ---
AUDREY OROURKE was seen in my office for initial evaluation on 02/17/19. The following Plan of Care was established for this patient: Initial Frequency: 3x /Week Initial Duration: 6-8 WKS Patient/Client Instruction: Educate patient on: Condition, Plan of Care, Risk Factors, Benefits of Fitness Program For the Purpose of:: To improve self management Therapeutic Exercise to Include: Strength training, Body mechanics, Postural training, Gait and locomotor training, Dynamic Lumbar Stabilization, Scapular Strength/Stabilization For the Purpose of:: To decrease pain, To improve muscle performance and motor function, To increase tolerance to activity/condition/position, To improve ability of physical actions for home/community/work/leisure, To improve gait and locomotor functions This patient was last seen in our office 05/08/19. Pertinent comments regarding their Physical therapy will appear below: This patient has not returned to Physical Therapy and is appropriate to return to MD for further follow-up as needed. At this point I will be discontinuing this patient from physical therapy. I would be happy to see this patient again in the future if found appropriate by the physician. Thank you! Leelee Bradford, PT, Cert MDT
== END 2019-05-08 19:00 | disposition home or self-care (01) ==
LOC: PT 10:30
PROVIDERS: Family Provider Family Medicine; PCP Family Medicine
DX: Z48.811 Encounter for surgical aftercare following surgery on the nervous system (principal)
CPT/HCPCS: 97110; 97162; 97164; 97530

== ENCOUNTER → 2019-06-05 12:56 | Outpatient (CLI) | payer MEDICARE, SELFPAY ==
[2019-04-19 11:19] VITALS: BMI 32.6
== END ==
PROVIDERS: PCP Student in an Organized Health Care Education/Training Program; Referring Provider Student in an Organized Health Care Education/Training Program; Visit Provider Student in an Organized Health Care Education/Training Program
DX: R00.0 Tachycardia, unspecified (principal)
CPT/HCPCS: 93225; 93226

== ENCOUNTER 2019-06-16 16:37 | Emergency (ER) | payer MEDICARE, SELFPAY ==
[2019-04-19 11:19] VITALS: BMI 32.6
[2019-06-16 16:38] VITALS: BP 111/67; PULSE 98; RESP 16; TEMP 36.6; O2SAT 97; BMI 25.7
--- NOTE | 2019-06-16 17:06 | EKG12_ITS ---
Test Reason : PALPATATIONS Blood Pressure : / mmHG Vent. Rate : 092 BPM Atrial Rate : 092 BPM P-R Int : 138 ms QRS Dur : 080 ms QT Int : 350 ms P-R-T Axes : 042 -29 035 degrees QTc Int : 432 ms Normal sinus rhythm Inferior infarct , age undetermined Abnormal ECG Confirmed by TROY PARKER, LAKESHA ([id number]), video effects editor LEONEL SMITH ([id number]) on 06/19/2019 8:38:32 AM Referred By: BEATA Confirmed By:LAKESHA SIMMONS MD
--- NOTE | 2019-06-16 17:07 | ED.DCSUM_ITS ---
History of Present Illness Chief Complaint: Palpitations Detail of Chief Complaint: Low-grade fever, cough Informant: Patient Onset: Today Narrative: Patient is been having intermittent palpitations for the past 4 weeks. She recently wore 48-hour Holter monitor reportedly had runs of SVT. She states she contacted her certified teacher assistant this week who stated there is nothing different to do. Patient states earlier this afternoon she developed rigors and mild congestion and cough. She checked her heart rate and it was 158. This lasted for a few hours and then spontaneously resolved. She was able to get a hold of someone at her PCPs office who wanted her evaluated in the emergency room. Patient denies having chest pain during these episodes. She denies lightheadedness or dizziness. - Past Medical History (1) SVT (supraventricular tachycardia) Status: Chronic (2) Atherosclerosis of coronary artery of [place] heart without angina pectoris Status: Chronic (3) Essential hypertension Status: Chronic (4) History of non-ST elevation myocardial infarction (NSTEMI) Status: Chronic (5) Hyperlipidemia Status: Chronic (6) Nicotine dependence Status: Chronic Past Medical History - Allergies and Home Meds Allergies/Adverse Reactions: Allergies Penicillins Allergy (Severe, Verified 06/16/19 17:40) Anaphylaxis clemastine [From Tavist] Allergy (Intermediate, Verified 06/16/19 17:40) Unknown pseudoephedrine [From Tavist] Allergy (Intermediate, Verified 06/16/19 17:40) Unknown oxycodone Allergy (Verified 06/16/19 17:40) Hives tramadol Adverse Reaction (Verified 06/16/19 17:40) Nausea/Vom/Diarrhea BEE STINGS Allergy (Severe, Uncoded 06/16/19 17:40) Anaphylaxis Primary Care Physician: Flo Lopez DO [COURTESY STAFF PHYSICIAN] - Doctors: Dr. Hernandez Prior records reviewed: Yes Surgical History: - - Reviewed Lives: Spouse/ Significant Other Smoking Status: Current every day smoker Review of Systems General: Reports: Chills, Fever Eyes: Denies: Visual changes - bilaterally ENT: Reports: - - Mild congestion. Denies: Bilateral ear pain Cardiovascular: Reports: Palpitations, Heart racing. Denies: Chest pain Respiratory: Reports: Cough. Denies: Dyspnea, Sputum Gastrointestinal: Denies: Abdominal pain, Nausea, Vomiting, Diarrhea Genitourinary: Denies: Dysuria Musculoskeletal: Denies: Extremity Pain Skin: Denies: Rash Neurological: Denies: Headache Hematologic: Denies: Easy bruising Allergy: Denies: Uticaria Physical Exam Vital Signs/Narrative: Vital Signs Temp Pulse Resp BP Pulse Ox 06/16/19 16:38 97.8 F 98 16 111/67 97 Inital Vital Signs reviewed: Yes General: Well nourished, Well developed Head: Normocephalic Eyes: Perrl, EOMI ENT: Moist mucous membranes Neck: Supple Cardiovascular: Regular rate, Regular rhythm Respiratory: No distress, Wheezing - Expiratory wheezes Abdomen: Soft, Nontender Back: Nontender Extremities: Nontender Skin: Normal color, No rash Neurological: Alert, Oriented x3 Psychological: Normal affect Diagnostic/Tx/Re-eval Impressions Chest X-Ray 06/16/19 17:30 IMPRESSION: No acute cardiopulmonary pathology Electronically Signed: Mekhi Fernando MD at 17:52 EDT , Service support , 06/16/19 17:30 Chest 1 View (Portable) [RAD] Stat Laboratory Results 06/16/19 06/16/19 17:30 17:30 WBC 12.5 H RBC 4.68 Hgb 13.9 Hct 43.2 MCV 92.3 MCH 29.7 MCHC 32.2 RDW Std Deviation 49.1 H RDW Coeff of Olegario 14.4 Plt Count 228 MPV 11.2 Immature Gran % (Auto) 0.300 Neut % (Auto) 85.4 H Lymph % (Auto) 7.9 L Murray % (Auto) 5.8 Eos % (Auto) 0.4 Baso % (Auto) 0.2 Absolute Neuts (auto) 10.7 H Absolute Lymphs (auto) 0.99 Nucleated RBC % 0 Sodium 135 L Potassium 3.8 Chloride 102 Carbon Dioxide 28.0 Anion Gap 5 BUN 9 Creatinine 0.77 Estim Creat Clear Calc 60.25 Est GFR (MDRD) Af Amer 96 Est GFR (MDRD) Non-Af 79 BUN/Creatinine Ratio 11.6 Glucose 107 H Calcium 9.3 Troponin I < 0.015 TSH 0.77 - EKG Initial EKG Interpretation: Sinus Rhythm - Sinus at 92 with no acute ischemia. - Medical Decision Making Patient is observed on monitoring analyst with no evidence of arrhythmia. I was able to review her Holter monitor report. Patient had several supraventricular beats, but no runs of SVT. I spoke with Dr. Hernandez, her certified teacher assistant. No changes are to be made to her medications at this time. If she continues to have further episodes and we can document true tachycardia, such as her reported heart rate of 158, she may require repeat Holter monitor. No changes need to be made at this time. ED Disposition - Plan for ED Patient: Disposition: Home or Assisted Living Diagnosis: Viral URI, Tachycardia Instructions: ED Palpitations, ED URI Viral Referrals: Jaydon Hernandez MD [STAFF PHYSICIAN] -
--- NOTE | 2019-06-16 17:30 | RAD_ITS ---
STUDY: X-RAY CHEST REASON FOR EXAM: Female, 63 years old. SENT BY PCP FOR NUMEROUS COMPLAINTS, PALPITATIONS, and quot;SHIVERING and quot;, TEMP 100.4, COUGH. TECHNIQUE: AP portable COMPARISON: None. FINDINGS: The lungs are clear and expanded. There is no demonstrated pleural abnormality. Normal size heart. Normal mediastinum and nitin. Normal visualized pulmonary arteries. Mildly calcified aortic arch and descending thoracic aorta. Normal visualized thoracic spine. Normal visualized ribs, clavicles, and shoulders. There is no demonstrated abnormality of the visualized soft tissue structures of the upper abdomen. RAD/Chest 1 View (Portable) IMPRESSION: No acute cardiopulmonary pathology Electronically Signed: Mekhi Fernando MD at 17:52 EDT , Service support ,
[2019-06-16 17:32] VITALS: BP 105/75; PULSE 87; RESP 28; TEMP 36.8; O2SAT 96
[2019-06-16 17:47] LABS: Absolute Lymphocyte Count 0.99 X10^3/uL (0.83-4.51); Absolute Neutrophil Count 10.7 X10^3/uL (2.0-7.7); Basophil# 0.02 X10^3/uL; Basophil% 0.2 % (0-1); Eosinophil# 0.05 X10^3/uL; Eosinophils% 0.4 % (0-5); Hematocrit 43.2 % (37-47); Hemoglobin 13.9 g/dL (12.0-15.0); Lymphocyte # 0.99 X10^3/ul (4.0); Lymphocyte % 7.9 % (19-41); Mean Corp Hgb Conc 32.2 g/dL (32-36); Mean Corpuscular Hgb 29.7 pg (27.0-32.0); Mean Corpuscular Volume 92.3 fL (81-99); Mean Platelet Vol. 11.2 fl (6.2-12.0); Monocyte# 0.73 X10^3/uL; Monocyte% 5.8 % (0-10); NRBC Flagged by Analyzer 0 % (0-5); Neutrophil # 10.69 X10^3/uL (2.7-7.7); Neutrophil % 85.4 % (47-70); Platelet Count 228 K/mm3 (150-450); RBC Distribution Width CV 14.4 % (11.6-14.6); RBC Distribution Width SD 49.1 fl (35.1-43.9); Red Blood Count 4.68 M/mm3 (4.2-5.4); White Blood Count 12.5 K/mm3 (4.4-11.0)
[2019-06-16 18:02] LABS: Anion Gap 5 (5-15); BUN 9 mg/dL (7-18); BUN/Creat Ratio 11.6 RATIO (10-20); Calcium,Total 9.3 mg/dL (8.5-10.1); Chloride 102 mmol/L (98-107); Creatinine, Serum 0.77 mg/dL (0.55-1.02); EST Glomerular Filtration Rate 79 mL/min (>60); Est Glom Filt Rate - Afr Amer 96 mL/min (>60); Estimated Creatinine Clearance 60.25 ml/min; Glucose 107 mg/dL (74-106); Potassium 3.8 mmol/L (3.5-5.1); Sodium Level 135 mmol/L (136-145); Thyroid Stim Hormone (TSH) 0.77 uIU/mL (0.358-3.74)
[2019-06-16 19:05] VITALS: BP 123/89; PULSE 84; RESP 16; O2SAT 97
== END 2019-06-16 19:06 | disposition home or self-care (01) ==
PROVIDERS: Emergency Provider Emergency Medicine; PCP Student in an Organized Health Care Education/Training Program
DX: I47.1 Supraventricular tachycardia (principal); J06.9 Acute upper respiratory infection, unspecified; I25.10 Atherosclerotic heart disease of native coronary artery without angina pectoris; I25.2 Old myocardial infarction; I10 Essential (primary) hypertension; E78.5 Hyperlipidemia, unspecified; F17.200 Nicotine dependence, unspecified, uncomplicated
CPT/HCPCS: 71045; 80048; 84443; 84484; 85025; 93005; 99284

== ENCOUNTER → 2019-12-19 09:42 | Outpatient (CLI) | payer MEDICARE, SELFPAY ==
--- NOTE | 2019-12-19 09:44 | ART_ITS ---
Reason For Study: Decreased pulses in feet Procedure A bilateral lower extremity continuous wave Doppler with analog waveform analysis,segmental pressures,and ankle brachial indexes without exercise. Left Segmental Pressures Left brachial= 114mmHg. Left posterior tibial artery = 116mmHg. Left dorsalis pedis artery = 103mmHg. The left dorsalis pedis waveforms are triphasic. The left posterior tibial artery waveforms are triphasic. Right Segmental Pressures Right brachial= 114mmHg. Right posterior tibial artery = 115mmHg. Right dorsalis pedis artery = 108mmHg. The right dorsalis pedis waveforms are biphasic. The right posterior tibial artery waveforms are triphasic. Indices The right ankle brachial index by the dorsalis pedis is 0.95. The right ankle brachial index by the posterior tibial artery is 1.01. The left ankle brachial index by the dorsalis pedis is 0.90. The left ankle brachial index by the posterior tibial artery is 1.02. Interpretation Summary Normal bilateral lower extremity PT ankle-brachial indices at rest Mild disease bilateral lower extremity DP ankle-brachial indices at rest Abnormal bilateral digital volume pulse recordings consistent with temperature effect or distal small vessel disease Ordering Physician: Jack Terry Referring Physician: Jack Terry Performed By: Celsa Arrington RVT and Student
== END ==
PROVIDERS: PCP Student in an Organized Health Care Education/Training Program; Referring Provider Student in an Organized Health Care Education/Training Program; Visit Provider Student in an Organized Health Care Education/Training Program
DX: R09.89 Other specified symptoms and signs involving the circulatory and respiratory systems (principal)
CPT/HCPCS: 93923

== ENCOUNTER 2020-05-14 07:10 | Outpatient (RCR) | payer MEDICARE, SELFPAY ==
[2020-04-23 07:44] VITALS: BMI 33.1
[2020-05-14] MEDS: COVID-19 VACC, MRNA(PFIZER)/PF 30 MCG/0.3 ML SYRINGE IM (10:17)
[2020-06-04] MEDS: COVID-19 VACC, MRNA(PFIZER)/PF 30 MCG/0.3 ML SYRINGE IM (09:45)
== END 2020-08-13 23:59 ==
LOC: IMMUN 07:10
PROVIDERS: PCP Student in an Organized Health Care Education/Training Program; Referring Provider Family Medicine; Visit Provider Family Medicine
DX: Z23 Encounter for immunization (principal)
CPT/HCPCS: 0001A; 0002A; 91300

== ENCOUNTER → 2020-06-12 05:44 | Outpatient (CLI) | payer MEDICARE, SELFPAY ==
[2020-04-23 07:44] VITALS: BMI 33.1
--- NOTE | 2020-06-12 19:00 | STRESSREP ---
Stress Test Report Pharmacologic myocardial perfusion stress test. 64-year-old lady with a history of back pain for preop evaluation. Medications atenolol hydrochlorothiazide and aspirin. Resting EKG demonstrates normal sinus rhythm with a rate of 80 bpm. Resting blood pressure is 130/84 mmHg. 0.4 mg of regadenoson was infused per usual protocol followed by rapid intravenous saline flush injection continuous EKG monitoring was performed. The maximum heart rate attained was 117 bpm which was 75% of max impacted heart rate the maximum workload was 1 metabolic equivalent. At rest there were no ST or T wave changes noted to suggest abnormal flow reserve and at peak infusion nonspecific ST changes were noted which did not meet the criteria for abnormal flow reserve. The final blood pressure was 120/82 mmHg. Myocardial perfusion protocol. 11.0 mCi of technetium 99m sestamibi was injected at rest. 0.4 mg of regadenoson was infused per usual protocol. At peak infusion 34.1 mCi of technetium 99m sestamibi was injected stress images were obtained stress and rest images were reconstructed and compared in the short axis vertical long horizontal long axis. Gated images were also obtained Perfusion SPECT analysis: Review of the stress images demonstrate normal uptake of tracer noted in all areas of the myocardium. The resting images similar demonstrate normal uptake of tracer noted in all areas of the myocardium. No obvious areas of reversibility are noted suggest ischemia and no previous infarct is noted. Gated SPECT analysis: The gated ejection fraction is noted to be 83%. Conclusion: Normal pharmacologic myocardial perfusion stress test. Preserved ejection fraction.
== END ==
PROVIDERS: PCP Student in an Organized Health Care Education/Training Program; Referring Provider Student in an Organized Health Care Education/Training Program; Visit Provider Student in an Organized Health Care Education/Training Program
DX: I25.10 Atherosclerotic heart disease of native coronary artery without angina pectoris (principal); I45.10 Unspecified right bundle-branch block; R73.01 Impaired fasting glucose; E78.2 Mixed hyperlipidemia
CPT/HCPCS: 78452; 93017; A9500; A4216; J2785

== ENCOUNTER 2021-02-03 10:00 | Outpatient (RCR) | payer MEDICARE, SELFPAY ==
--- NOTE | 2020-11-13 13:45 | HP.PTEVAL_ITS ---
Patient's Visit Information AUDREY OROURKE is a 65 year old F referred to Physical Therapy by Dr. Jack Terry DO with a diagnosis of SPINAL STENOSIS AND RIGHT KNEE PAIN. Date of Evaluation: 11/13/20 Physical Therapist: Leelee Bradford PT, Cert MDT - Visit Plan Frequency: 2-3x /Week Duration: 4-6 Weeks Plan: PATIENT IS A FALL RISK BUT REFUSES TO USE ASSISTIVE DEVICE. START SLOW - PATIENT HAS HISTORY OF DELAYED ONSET OF PAIN. AQUATIC THERAPY FOR PAIN RELEIF, POSTURE CORRECTION/STRENGTHENING, INSTRUCTION IN APPROPRIATE BODY MECHANICS AND ACTIVITY MODIFICATIONS. DLS WITH A NEUTRAL SPINE ONLY. KIMBERLY LE ROM, STRETCHING AND STRENGTHENING. HEP INSTRUCTION. - Subjective Work/Leisure: RETIRED. Disability: NO. Present symptoms: LOW BACK AND KIMBERLY SHARP LEG PAIN. KIMBERLY CALF AND FOOT NUMBNESS/TINGLING. RIGHT KNEE PAIN. Present since: RIGHT KNEE PAIN STARTED ABOUT 5 WEEKS AGO. CHRONIC LBP AND LEG PAIN SINCE 2019. Pain Scale: R KNEE PAIN: WORST 15/10, LEAST 3/10. LOW BACK/LEG PAIN: WORST 15/10, LEAST 5/10. Currently: RIGHT KNEE PAIN: 6/10, LOW BACK/LEG PAIN: 6/10. Commenced as a result of: KNEE - NO APPARENT REASON. LOW BACK PAIN - FROM BEING PUSHED. Worse: WALKING, CLIMBING STAIRS, GETTING UP FROM A CHAIR, ROLLING OVER...ANYTHING CAN SET IT OFF. Better: LUMBAR STIMULATOR, HEATING PAD AND VICODIN. Disturbed sleep: YES. Previous history/Previous treatment: LUMBAR LAMINECTOMY 2018, SPINAL STIMULATOR JUNE 2020, RIGHT KNEE CORTISONE INJECTION. 2 SPINAL INJECTIONS PRIOR TO THE STIMULAOR PLACEMENT. PATIENT REPORTS THE RIGHT KNEE CORTISONE INJECTION HELPED. SHE ALSO REPORTS THE SPINAL STIMULATOR IS HELPING. Coughing/sneezing/straining: UNKNOWN. Gait: FALLS. LAST FALL WAS ABOUT 3 WEEKS AGO - PATIENT DENIES ANY MAJOR INJURIES. PATIENT REPORTS SHE FELL GETTING UP IN THE MIDDLE OF THE NIGHT TO GO TO THE BATHROOM AND SHE JUST HIT THE FLOOR FOR NO APPARENT REASON. PATIENT REPORTS SHE DOES NOT USE ASSISTIVE DEVICES AND REFUSES TO USE ASSISTIVE DEVICES. PATIENT REPORTS USE OF ASSISTIVE DEVICES HAVE BEEN RECOMMENDED. Difficulty initiating urination: NO. Accidents: NO. Unexplained weight loss: NO. Imaging: MRI OF LUMBAR SPINE 2020: EXAM DESCRIPTION: MR Lumbar Spine. CLINICAL HISTORY: 63 years Female, LBP, bilat leg weakness/burning; hx prior surgery 11/2018. COMPARISON: Previous MRI of the lumbar spine obtained on 01/08/2019. TECHNIQUE: MRI lumbar spine was performed utilizing T1 and fast spin-echo T2-weighted. and STIR weighted sagittal images followed by angled axial T1 and. T2-weighted images obtained from above the L1-L2 intervertebral disc space. level down to the L5-S1 level. Contrast material was intravenously. injected and axial and sagittal postcontrast T1-weighted images of the. lumbar spine were obtained. FINDINGS: T12-L1: On the sagittal images, the intervertebral disc and neural foramina. appear to be normal. L1-L2: A minimally bulging disc is noted at this level with no evidence of. disc herniation or spinal stenosis and neural foramina appear to be normal. L2-L3:A minimally bulging disc is noted at this level with no evidence of. disc herniation or spinal stenosis and neural foramina appear to be normal. L3-L4: A minimally bulging disc is noted at this level with no evidence of. disc herniation or spinal stenosis and neural foramina appear to be normal. L4-L5: The intervertebral disc and neural foramina appear to be normal. L5-S1: The patient has had a left hemilaminectomy at this level with. resection of a herniated disc which was previously noted on the prior MRI. obtained on 01/08/2019. Contrast material was intravenously injected and. shows residual epidural fibrosis at the level of the previously resected. herniated disc and epidural fibrosis noted at the left hemilaminectomy. defect. No recurrent disc herniation or spinal stenosis is seen. Mild. central foraminal stenosis is noted bilaterally without compression of the. exiting L5 nerve roots.. Conus medullaris and lumbar nerve roots: The conus medullaris ends at the. T12-L1 level and appears to be normal. The lumbar nerve roots appear to. be normal. Lumbar spine: The lumbar spine appears to be in good position and. alignment. The bone marrow of the lumbar vertebral bodies appears to be. normal. No vertebral body compression fractures are seen. There is mild. facet arthropathy noted at the L4-5 and L5-S1 levels bilaterally. MRI/Spine Lumbar W/WO Contrast. IMPRESSION: Status post left hemilaminectomy at the L5-S1 level with residual epidural. fibrosis and no evidence of recurrent disc herniation or spinal stenosis. . Electronically Signed: Fuentes Serrato,. at 13:23 EST. PMH/Recent major surgery: CAD, HTN, COPD, LUMBAR DDD, S/P LUMBAR LAMINECTOMY 2018, SPINAL CORD STIMULATOR PLACEMENT JUNE 2020, CARDIAC CATH 2018. PATIENT DENIES DEPRESSION. OTHER: PATIENT REPORTS DR. LEIVA HER BACK SURGEON TOLD HER HE WAS ABLE TO REMOVE 4 OF THE 5 PIECES IN HER BACK AND IT IS TOO DANGEROUS TO REMOVE THE OTHER ONE. OTHER: PATIENT REPORTS THAT RIGHT BEFORE COVID SHUT EVERYTING DOWN DR. TREJO TOLD HER SHE SHOULD TRY AQUATIC THERAPY. PATIENT DENIES HAVING ANY PHYSICIAN RESTRICTIONS. PATIENT REPORTS THAT IF SHE DOES A LITTLE TOO MUCH LIKE WORKING IN THE KITCHEN SHE PAYS FOR IT BIG TIME THE NEXT DAY. - Objective Sitting/Standing Posture: POOR. INCREASED TRUNK FLEX. FH. ROUNDED SHLD'S. Active Correction of posture: WORSE. Other Observations: THIS PATIENT AMBULATES INDEP'LY INTO PT WITHOUT ANY ASSITIVE DEVICES. SHE WALKS WITH DECREASED CADANCE, WIDE BASE OF SUPPORT AND DECREASED KIMBERLY STRIDE LENGTH. SHE IS UNSTEADY BUT NO LOB - SHE JUST WALKS VERY SLOW. PATIENT IS UNABLE TO TRANSFER FROM SIT TO STAND WITHOUT UE ASSIST. Motor deficit: KIMBERLY LE WEAKNESS. RIGHT HIP 3+/5, L HIP 4-/5. R KNEE EXT 3+/5, FLEX 4-/5. L KNEE EXT 4-/5, KNEE FLEX 4-/5. KIMBERLY ANKLES 4/5. Sensory deficit: KIMBERLY LE LIGHT TOUCH SENSATION GROSSLY INTACT. ROM deficit: FULL KIMBERLY KNEE EXT. RIGHT KNEE FLEX IN SUPINE WITH A HEEL SLIDE = 130 DEG. TIGHT KIMBERLY HIP FLEXORS. Dural Signs: NEGATIVE KIMBERLY LE'S. Lumbar mvmt loss: flex - NIL. ext - ROXANA. R SG - ROXANA. L SG - ROXANA. PATIENT DENIED PAIN WITH LUMBAR ROM TESTING TODAY BUT HER BACK IS VERY STIFF SIDE TO SIDE AND BACKWARDS. Core strength: POOR. Palpation: TENDER OVER STIMULATOR INCISION. PATIENT REPORTS DR. HERNANDEZ IS AWARE. NO ACUTE SPINAL OR KNEE TENDERNESS TODAY. - Balance/Special Test Scores Oswestry Low Back Score: 31 Lower Extremity Functional Score: 23 - Goals Goal 1:: DECREASE C/O LOW BACK AND KIMBERLY LE SX'S INCLUDING R KNEE PAIN. Goal Time Frame: 4-6 Weeks Goal 2:: IMPROVE PERSONAL CARE, LIFTING, WALKING, SITTING, STANDING, SLEEP, SOCIAL LIFE, TRAVEL AND HOMEMAKING FUNCTION. Goal Time Frame: 4-6 Weeks Goal 3:: INSTRUCT IN PROPHYLAXIS Goal Time Frame: 4-6 Weeks - Anticipated Interventions Patient/Client Instruction: Educate patient on: Condition, Plan of Care, Risk Factors For the Purpose of:: To improve self management Therapeutic Exercise to Include: Strength training, Body mechanics, Postural tr aining, Flexibilty training, Gait and locomotor training, Neuromotor development, In an aquatic setting, Dynamic Lumbar Stabilization Comment: NEUTRAL SPINE ONLY For the Purpose of:: To decrease pain, To increase ROM, To improve muscle performance and motor function, To increase tolerance to activity/condition/position, To improve ability of physical actions for home/community/work/leisure, To improve gait and locomotor functions Thank you for the opportunity to evaluate your patient. For Medicare and Medicare HMO plans, please review the plan of care and approve it. It will need to be FAXED BACK to us at [phone] for Medicare purposes. For Medicare only, by signing this I certify the plan of care. Please let me know if there are questions or concerns regarding this plan of care. Physician Signature: Date:
--- NOTE | 2020-12-19 14:22 | HP.PTREVAL_ITS ---
Dr. Jack Terry, DO, It has been my pleasure to treat AUDREY OROURKE over the last 9 visits for SPINAL STENOSIS AND RIGHT KNEE PAIN. Please see the progress note below for an update on the physical therapy plan of care! Subjective: PATIENT REPORTS HER BALANCE WAS IMPROVING UNTIL SHE HAD TO TAKE TIME OFF FOR HER HUSBANDS SURGERY. SHE REPORTS SHE ISN'T HOLDING ON TO THE PEREZ AND FURNITURE MUCH WHEN WALKING. SHE REPORTS SHE REALLY LIKES THE WATER THERAPY AND WANTS TO CONTINUE. STILL HAVING A LOT OF RIGHT KNEE PAIN. SHE REPORTS THE EFFECTS OF HER KNEE INJECTION HAVE WORN OFF. DR. KOWALSKI IS CONSIDERING INJECTING HER KNEE AGAIN PER PATIENT REPORT AND SHE WILL FOLLOW UP WITH HIM AGAIN 01/09/21. STATES SHE IS TRYING TO HOLD OUT UNTIL THEM BUT HER KNEE PAIN IS REALLY BAD. Objective/Function: PATIENT WAS SEEN TODAY FOR RE-ASSESSMENT OF PROGRESS TOWARD THE SET PT GOALS AND THE NEED FOR FURTHER PHYSICAL THERAPY VS READINESS FOR DISCHARGE. UPON EXAM TODAY THERE ARE NO SIGNIFICANT OBJECTIVE CHANGES IN TESTING COMPARED TO INITIAL EVAL EXCEPT HER BALANCE HAS IMPROVED DEMO'D BY INCREASED STRIDE LENGTH COMPARED TO INITIAL EVAL BUT GAIT IS STILL VERY SLOW AND ANTALGIC. SHE IS STILL A HIGH FALL RISK BUT CONTINUES TO REFUSE ASSISTIVE DEVICE. DISCUSSED DISCHARGE PLANNING FOR [facility] POOL EX ONCE FORMAL PHYSICAL THERAPY CONCLUDES. Plan Plan: PATIENT IS A FALL RISK BUT REFUSES TO USE ASSISTIVE DEVICE. CONTINUE TO PROGRESS SLOWLY - PATIENT HAS HISTORY OF DELAYED ONSET OF PAIN. AQUATIC THERAPY FOR PAIN RELEIF, POSTURE CORRECTION/STRENGTHENING, INSTRUCTION IN APPROPRIATE BODY MECHANICS AND ACTIVITY MODIFICATIONS. DLS WITH A NEUTRAL SPINE ONLY. KIMBERLY LE ROM, STRETCHING AND STRENGTHENING. HEP INSTRUCTION. Balance/Gait/Functional tests - Balance/Special Test Scores Oswestry Low Back Score: 30 Lower Extremity Functional Score: 15 Goals Goal 1:: DECREASE C/O LOW BACK AND KIMBERLY LE SX'S INCLUDING R KNEE PAIN. Goal Time Frame: 4-6 Weeks Goal Progress: Progressing Goal 2:: IMPROVE PERSONAL CARE, LIFTING, WALKING, SITTING, STANDING, SLEEP, SOCIAL LIFE, TRAVEL AND HOMEMAKING FUNCTION. Goal Time Frame: 4-6 Weeks Goal Progress: Progressing Goal 3:: INSTRUCT IN PROPHYLAXIS Goal Time Frame: 4-6 Weeks Goal Progress: Progressing Anticipated Interventions Patient/Client Instruction: Educate patient on: Condition, Plan of Care, Risk Factors For the Purpose of:: To improve self management Therapeutic Exercise to Include: Strength training, Body mechanics, Postural training, Flexibilty training, Gait and locomotor training, Neuromotor development, In an aquatic setting, Dynamic Lumbar Stabilization Comment: NEUTRAL SPINE ONLY For the Purpose of:: To decrease pain, To increase ROM, To improve muscle performance and motor function, To increase tolerance to activity/condition/position, To improve ability of physical actions for home/community/work/leisure, To improve gait and locomotor functions Please do not hesitate to contact me at [phone] by phone or if you have questions or concerns regarding this new plan of care! Sincerely, Leelee Bradford, PT, Cert MDT
--- NOTE | 2021-02-03 10:29 | HP.PTDCSUM ---
It has been my pleasure to treat AUDREY OROURKE referred by Dr. Jack Terry DO, with the diagnosis of SPINAL STENOSIS AND RIGHT KNEE PAIN for a total of 19 visit(s). Discharge Date: 02/03/21 Please see the following information for a summary of their discharge status. Subjective: PATIENT REPORTS SHE IS MUCH MUCH BETTER. REPORTS BEING READY TO CONTINUE POOL EX'S INDEP'LY WITH MEMBERSHIP. THE STEPS ARE EASIER. Low back Pain Intensity (Out of 10): 4 L LE Pain Intensity (Out of 10): Unrated RIGHT KNEE Pain Intensity (Out of 10): 0 % Improvement: 40 Objective/Function: PATIENT WAS SEEN TODAY FOR RE-ASSESSMENT OF PROGRESS TOWARD THE SET PT GOALS AND THE NEED FOR FURTHER PHYSICAL THERAPY VS READINESS FOR DISCHARGE. ALL GOALS MET. PATIENT IS INDEP WITH A POOL PROGRAM AND APPROPRIATE FOR D/C. PATIENT AGREEABLE. PATIENT DEMO'S IMPROVED INDEP AND SAFE GAIT INTO PT TODAY WITHOUT ASSISTIVE DEVICE. HER STRIDE LENGTH, BALANCE AND CADANCE OR SIGNIFICANTLY IMPROVED SINCE EVAL AND LAST RE-CHECK. UPON EXAM TODAY: Motor deficit: KIMBERLY LE WEAKNESS. RIGHT HIP 4-/5, L HIP 4/5. R KNEE EXT 4-/5, FLEX 4/5. L KNEE EXT 5/5, KNEE FLEX 5/5. KIMBERLY ANKLES 5/5. Lumbar mvmt loss: flex - NIL. ext - ROXANA. R SG - ROXANA. L SG - ROXANA. PATIENT DENIES LBP WITH LUMBAR ROM TESTING ALL PLANES EXCEPT SOME PULLING ON LB ALL PLANES. Goal 1:: DECREASE C/O LOW BACK AND KIMBERLY LE SX'S INCLUDING R KNEE PAIN. Goal Progress: Goal Met Goal 2:: IMPROVE PERSONAL CARE, LIFTING, WALKING, SITTING, STANDING, SLEEP, SOCIAL LIFE, TRAVEL AND HOMEMAKING FUNCTION. Goal Progress: Goal Met Goal 3:: INSTRUCT IN PROPHYLAXIS Goal Progress: Goal Met Plan: D/C TO INDEP WATER EX. If there are questions or concerns regarding this patient's physical therapy, please feel free to call me at [phone]. Thank you for the referral of this patient. Sincerely, Leelee Bradford, PT, Cert MDT Balance/Gait/Functional tests - Balance/Special Test Scores Oswestry Low Back Score: 25 Lower Extremity Functional Score: 28
== END 2021-02-03 19:00 | disposition home or self-care (01) ==
LOC: PT 10:00
PROVIDERS: PCP Student in an Organized Health Care Education/Training Program; Visit Provider Student in an Organized Health Care Education/Training Program
DX: M47.26 Other spondylosis with radiculopathy, lumbar region (principal); M48.061 Spinal stenosis, lumbar region without neurogenic claudication; M25.561 Pain in right knee
CPT/HCPCS: 97110; 97113; 97162; 97164

== ENCOUNTER 2021-03-11 11:01 | Outpatient (CLI) | payer MEDICARE, SELFPAY ==
--- NOTE | 2021-03-11 11:07 | RAD_ITS ---
STUDY: X-RAY - THORACIC SPINE REASON FOR EXAM: Female, 65 years old. Thoracic pain since before Nora. Pain after leaning over. Pain is now centered in the right scapular region.. TECHNIQUE: AP, lateral, both oblique and flexion-extension view(s) of the thoracic spine were obtained. COMPARISON: None. FINDINGS: Normal kyphosis of the thoracic spine. There is no substantial scoliosis. There is demineralization of the thoracic spine with endplate spondylosis. There is multilevel disc space narrowing of the thoracic spine. There is no evidence of acute fracture or loss of vertebral axial height. There is maintenance of normal alignment. There is no alteration in normal alignment with flexion or extension. There is a dorsal column stimulator with its electrodes at the level T7-T9. The soft tissue structures are unremarkable. RAD/Thoracic Spine Min 4 Views IMPRESSION: 1. Osteopenia and mild degenerative changes of the thoracic spine without acute fracture or subluxation. 2. Dorsal column stimulator. Electronically Signed: Ivan Hoff DO at 16:56 EST Tel [phone], Service support ,
== END 2021-03-11 23:59 | disposition short-term general hospital (02) ==
LOC: MTRAD 11:05
PROVIDERS: PCP Student in an Organized Health Care Education/Training Program; Referring Provider Anesthesiology Pain Medicine; Visit Provider Anesthesiology Pain Medicine
DX: M51.34 Other intervertebral disc degeneration, thoracic region (principal); Z96.82 Presence of neurostimulator
CPT/HCPCS: 72074

== ENCOUNTER 2021-04-23 11:28 | Outpatient (CLI) | payer MEDICARE, SELFPAY ==
--- NOTE | 2021-04-23 11:45 | RAD_ITS ---
STUDY: X-RAY CHEST REASON FOR EXAM: Female, 65 years old. SINUS INFECTION FOR 2-3 WEEKS, FINISHED 2 ROUNDS OF ANTIBIOTICS AND STILL CONGESTED wheezing TECHNIQUE: XR Chest 2 Views COMPARISON: 06.16.19 FINDINGS: There is no demonstrated pleural abnormality. Metallic leads in the spinal canal may suggest spinal stimulator leads. Normal size heart. Normal mediastinum and nitin. Normal visualized pulmonary arteries. There is atherosclerotic calcification of the aortic arch with tortuosity. There are diffuse degenerative changes of the visualized thoracic spine. There is degenerative osteoarthritis of the bilateral shoulders. There is no demonstrated abnormality of the visualized soft tissue structures of the upper abdomen. RAD/Chest PA and Lateral IMPRESSION: There are no acute findings. Electronically Signed: Sebastian Cha MD at 16:14 EST ,
== END 2021-04-23 23:59 | disposition home or self-care (01) ==
LOC: RAD 11:30
PROVIDERS: PCP Student in an Organized Health Care Education/Training Program; Referring Provider Physician Assistant Medical; Visit Provider Physician Assistant Medical
DX: R06.2 Wheezing (principal)
CPT/HCPCS: 71046

== ENCOUNTER → 2021-12-26 | Outpatient (CLI) | payer MEDICARE, SELFPAY ==
--- NOTE | 2021-12-26 11:05 | RAD_ITS ---
STUDY: X-RAY - LUMBOSACRAL SPINE REASON FOR EXAM: Female, 66 years old. PAIN TECHNIQUE: 6 view(s) of the lumbosacral spine were obtained. COMPARISON: None FINDINGS: Normal lumbar lordosis. There is no substantial scoliosis. Normal anatomic alignment without evidence of instability on flexion and extension. No acute fracture. Loss of normal disc space height at L5-S1. Mild diffuse spondylitic osteophytes. Normal bilateral sacral ala, sacroiliac joints, and visualized sacrum. Left sided stimulator unit with leads into the thoracic spine. RAD/L/S Spine w Bend Min 6 Vw IMPRESSION: Mild lumbar spondylosis with degenerative disc disease at L5-S1. Electronically Signed: Gabriele Castillo MD at 22:18 EDT ,
== END | disposition home or self-care (01) ==
LOC: MTRAD 11:04
PROVIDERS: PCP Student in an Organized Health Care Education/Training Program; Referring Provider Anesthesiology Pain Medicine; Visit Provider Anesthesiology Pain Medicine
DX: M51.37 Other intervertebral disc degeneration, lumbosacral region (principal)
CPT/HCPCS: 72110; 72114

== ENCOUNTER 2022-01-09 05:56 | Day surgery (SDC) | payer MEDICARE, SELFPAY ==
--- NOTE | 2022-01-08 17:18 | HP.PCM_ITS ---
History and Physical Date of Admission: 01/09/22 HISTORY OF PRESENT ILLNESS 66-year-old woman who presents for evaluation for TBSE.? She has concerns about a lesion on her nasal columella that has increased in size over the last several months.? She states it has been removed twice in the past and has recurred.? She has also used Aldara on this nasal columellar lesion.? It did not show any improvement.? She also has a concern about a lesion right lower cheek that has increased in size over the last several months.? She denies trauma.? She denies fever.? She denies bleeding. ? She had lesions on her left outer arm, right anterior lateral arm, upper central forehead, dorsum right big toe near the nail, and right anterolateral distal leg that have resolved. She presents at this time for further evaluation and treatment. PAST MEDICAL HISTORY Actinic keratosis Arthritis Asthma Atherosclerosis of coronary artery of [place] heart without angina pectoris Benign keratosis Chronic back pain COPD (chronic obstructive pulmonary disease) Essential hypertension Family history of skin cancer GERD (gastroesophageal reflux disease) History of chronic back pain History of non-ST elevation myocardial infarction (NSTEMI) (01/2019) Hyperlipidemia Neoplasm of skin of nasal tip Neoplasm of skin of right cheek Neoplasm of unspecified behavior of bone, soft tissue, and skin Neuropathy Nicotine dependence Pneumonia Smoker SVT (supraventricular tachycardia) PAST SURGICAL HISTORY History of discectomy (01/2019) History of hemilaminectomy (01/13/19) History of left heart catheterization (01/11/19) Spinal cord stimulator status (~06/2020) ALLERGIES bee venom protein (honey bee) Penicillins clemastine [From Tavist] pseudoephedrine [From Tavist] oxycodone tramadol MEDICATIONS atenolol 50 mg tablet 50 mg PO QDAY 09/16/17 [History Confirmed 11/28/21] budesonide-formoterol HFA 160 mcg-4.5 mcg/actuation aerosol inhaler (Symbicort) 2 puff inhalation Q12H 09/16/17 [History Confirmed 11/28/21] hydrochlorothiazide 12.5 mg tablet 12.5 mg PO QDAY 09/16/17 [History Confirmed 11/28/21] tiotropium bromide 2.5 mcg/actuation mist for inhalation (Spiriva Respimat) 2 puff inhalation QDAY 09/16/17 [History Confirmed 11/28/21] albuterol sulfate 90 mcg/actuation aerosol inhaler 2 puff inhalation Q4H PRN Sob &/Or Wheezing 04/18/19 [History Confirmed 11/28/21] omeprazole 20 mg capsule,delayed release 20 mg PO DAILY 04/19/19 [History Confirmed 11/28/21] pregabalin 100 mg capsule (Lyrica) 100 mg PO BID 06/12/19 [History Confirmed 11/28/21] aspirin 81 mg tablet,delayed release (Adult Low Dose Aspirin) 81 mg PO DAILY 04/23/20 [History Confirmed 11/28/21] cholecalciferol (vitamin D3) 25 mcg (1,000 unit) capsule 25 mcg PO DAILY 04/23/20 [History Confirmed 11/28/21] cyclobenzaprine 10 mg tablet 10 mg PO QAM PRN 04/23/20 [History Confirmed 11/28/21] rosuvastatin 40 mg tablet 40 mg PO DAILY 04/23/20 [History Confirmed 11/28/21] hydrocodone-acetaminophen 5-325mg 5mg-325mg 1 tab PO Q8H PRN 04/23/21 [History Confirmed 11/28/21] amlodipine 10 mg tablet 5 mg PO DAILY 11/28/21 [History Confirmed 11/28/21] FAMILY HISTORY Mother Heart disease Hypertension High cholesterol Osteoporosis Skin cancer CVA (cerebral vascular accident)Father Heart disease Hypertension High cholesterol CAD (coronary artery disease) Myocardial infarction CVA (cerebral vascular accident)Brother Asthma SeizuresOther Family history of skin cancer SOCIAL HISTORY Smoking Status:? Current every day smoker alcohol intake:? never substance use type:? does not use caffeine:? Yes REVIEW OF SYSTEMS General-denies fever, fatigue, and weight loss. Ear nose and throat-has chronic sinus problems.? Denies nasal congestion and sore throat. Eyes-denies glaucoma.? Denies cataracts. Endocrine-denies excessive thirst or urination. Skin-had lesions on her left outer arm, right anterior lateral arm, upper central forehead, dorsum right big toe near the nail, and right anterolateral distal leg that have resolved. ?Has enlarging lesions nasal columella and right lower cheek. Patient has a family history of skin cancer. Musculoskeletal-has joint pain, joint stiffness, weakness of muscles and joints, back pain, and arthritis. Neurologic-denies headaches. Cardiovascular-denies chest pain.? Denies fatigue.? Denies lightheadedness with exertion. Psychiatric-denies anxiety.? Denies depression. Respiratory-has shortness of breath.? Has chronic cough.? Has some asthma.? Patient is a smoker. Gastrointestinal-denies nausea, vomiting, diarrhea, and constipation. Hematologic-denies abnormal bruising and bleeding. Genitourinary-denies hematuria.? Denies urinary frequency. PHYSICAL EXAMINATION General-well developed, well nourished, in no acute distress.? HEENT-pupils equal round and reactive to light.? Extraocular muscles intact.? Throat is clear.? On the upper central forehead was a cutaneous horn component that has resolved.? The actinic lesion right upper cheek by the lower eyelid remains smooth and healed at this time without evidence of recurrence.? On the nasal columella is a wart like lesion that measures 3 mm.? Has irregular borders.? It is raised in configuration.? No ulceration.? Lesion is nontender. On the right lower cheek is a 3 mm lesion that is slightly raised in configuration.? Has regular borders.? No ulceration.? Lesion is nontender.? Neck-supple and nontender.? No cervical adenopathy.? No suspicious lesions noted. Chest wall-no suspicious lesions noted. Lungs-clear to auscultation.? No wheezing. Heart-regular rate and rhythm. Abdomen-soft and nondistended.? No suspicious lesions noted. Extremities-full range of motion.? No axillary adenopathy.? Radial pulses are palpable.? On the left outer arm is a benign keratosis that remains unchanged at this time. ? The actinic lesion on the left middorsal forearm remains smooth and healed at this time without evidence of recurrence.? On her right anterolateral arm was an actinic lesion that appears smooth and hea led after using Aldara. On her right anterolateral distal leg was an erythematous lesion that has resolved. On the dorsum right big toe near the nail is 1 cm lesion that feels roughened.? Has a callus component.? Looks benign at this time.? Lesion is nontender. Back-no suspicious lesions noted. Neuro-cranial nerves II through XII grossly intact. ASSESSMENT 1.? 3 mm lesion nasal columella. 2.? 3 mm lesion right lower cheek. 3.? Cutaneous horn lesion upper central forehead, resolved. 4.? Actinic lesion left mid dorsal forearm, healed after using Aldara. 5.? Actinic lesion right anterolateral arm, healed after using Aldara. 6.? Actinic lesion right upper cheek/right lower eyelid, healed after using Aldara. 7.? Benign keratosis left outer arm, stable. 8.? Benign keratosis dorsum right big toe near the nail. 9.? Erythematous lesion right anterolateral distal, resolved. 10.? Family history of skin cancer. 11.? Smoker. PLAN Patient has an enlarging lesion nasal columella and right lower cheek that should be excised and sent to Pathology for analysis to rule out carcinoma.? If carcinoma is present, then further excision will be done with skin flap or skin graft reconstruction. Her actinic lesions are healed.? Will continue to observe the areas.? If they were to recur, then further Aldara therapy may be done or surgical excision. Will need to watch the cutaneous horn lesion upper central forehead.? It appears resolved at this time.? There is no evidence present so the incision would be a guess, so I will wait until there is some evidence of recurrence at which time it will be excised and sent to Pathology for analysis to rule out carcinoma.? If carcinoma is present then further excision will be done with skin flap or skin graft reconstruction. Surgery would be on an outpatient basis under local anesthesia with IV sedation. The patient was informed of the risks and complications of the procedure including alternatives to surgery. These were discussed with the patient personally.?? She voiced understanding and wishes to proceed. Some of the risks and complications were included in a form from the [employer]. Encouraged the patient to stop smoking as it may have deleterious effects on wound healing. Assessment & Plan Assessment/Plan (1) Neoplasm of skin of nasal tip: (2) Neoplasm of skin of right cheek: (3) Family history of skin cancer: (4) Smoker:
[2022-01-09] VITALS (7 sets, daily range): BP systolic 110–132; BP diastolic 66–96; PULSE 66–76; RESP 12–16; TEMP 36.2–36.7; O2SAT 92–93; BMI 30.4
--- NOTE | 2022-01-09 | LES_PTH ---
PATIENT: AUDREY OROURKE LOC: [facility] [place] U#:[id number] AGE/SX: 66/F ROOM: RE01/09/[address]: Dr. Ryley Saha MD : [id number] BED: DIS: 01/09/2022 SPEC #: [id number] RECD: 01/09/22 08:13 STATUS: YUE ASHWINI #: [id number] DELONTE: 01/09/22 00:[address]: Ryley Saha DEPT: SURGICAL PATHOLOGY RECD BY: Sharla Burnham ENTERED: 01/09/22 09:01 SP TYPE: Lesion OTHR DR: Dr. Jack Terry DO Tissues: A - Skin of nose, NOS B - Skin of face, NOS C - Skin of face, NOS Procedures: Frozen Section (charge) Surgery Specimen Level IV HEADER OPERATION: Excision lesion nasal columella with frozen section, excision PRE-OP DIAGNOSIS: 3 mm lesion nasal columella, 3 mm lesion right lower cheek TISSUE SUBMITTED: A ? Lesion, cheek shaved biopsy right lower cheek, B ? Lesion nasal columella, suture at 12 o?clock, C ? Verrucous keratosis wit atypia nasal columella, suture at 12 o?clock FROZEN SECTION DIAGNOSIS A. Skin lesion of nasal columella, biopsy: Verrucoid keratosis with mild atypia. B. Right cheek lesion, shave biopsy: Actinic keratosis and solar elastosis. AM:mecca 01/09/2022 MICROSCOPIC DIAGNOSIS A. Skin lesion of nasal columella, biopsy: Verrucoid keratosis and solar elastosis, mildly inflamed. Extensive solar elastosis, mildly inflamed. B. Right cheek lesion, shave biopsy: Actinic keratosis and solar elastosis. C. Nasal columella, biopsy: Solar elastosis, mildly inflamed. AM:mecca 01/12/2022 MICROSCOPIC DESCRIPTION Slides are reviewed. GROSS DESCRIPTION A - Received fresh for frozen section consultation labeled with the patient's name is a specimen designated nasal columella biopsy. The specimen consists of an irregular fragment of pink-francis skin with attached soft tissue measuring 0.5 x 0.2 x 0.2 cm. The 12 o?clock position is inked in yellow ink. The remainder of the specimen is inked in black ink. The specimen is submitted in its entirety for frozen section consultation in one block. / AM: 01/09/2022 B - Received fresh for frozen section consultation labeled with the patient's name is a specimen designated right cheek shaved biopsy. The specimen consists of light francis shave biopsy of skin measuring 5 mm in diameter and 1 mm in thickness. The specimen is bisected and submitted in its entirety for frozen section consultation in one block. / AM: 01/09/2022 C - Received in fixative is one container labeled with the patient's name and designated nasal columella. The specimen consists of an irregular fragment of francis tissue measuring 0.6 x 0.2 x 0.1 cm. The 12 o?clock is inked in yellow ink. The remainder of the specimen is inked in black ink. The specimen is totally submitted in one cassette. / AM: 01/09/2022 TC:5 CPT: 99288 x3, 35696 x2
[2022-01-09] MEDS: Ipratropium/Albuterol Sulfate 3 ML AMPUL.NEB INHALATION (07:15)
[2022-01-09] MEDS: Clindamycin 900 MG/50 ML BAG 75 MG IV (07:28)
[2022-01-09] MEDS: Lidocaine 2% /Epi 1:100 (20ml) 20 ML VIAL (07:55)
[2022-01-09] MEDS: Mupirocin Ointment 22gm Tube 1 APPLIC (08:37)
[2022-01-09] MEDS: Silver Nitrate (BKC) 1 EACH (08:55)
--- NOTE | 2022-01-09 08:56 | OP.PCM_ITS ---
Problems Associated Problem List Diagnoses (1) Neoplasm of skin of right cheek: (2) Neoplasm of skin of nasal tip: (3) Verrucous keratosis: (4) Actinic keratosis: (5) Family history of skin cancer: (6) Smoker: Report of Operation Date of Procedure: 01/09/22 Pre-Operative Diagnosis: 1. 3 mm lesion nasal columella. 2. 3 mm lesion right lower cheek. 3. Family history of skin cancer. 4. Smoker. l Post-Operative Diagnosis: 1. 3 mm verrucous keratosis with atypia nasal columella. 2. 3 mm actinic keratosis right lower cheek. 3. Family history of skin cancer. 4. Smoker. Surgery/Procedure Performed:: 1. Excision 3 mm verrucous keratosis with atypia nasal columella with 1.7 cm layered closure. 2. Intradermal excision 3 mm actinic keratosis right lower cheek. Description of Surgical Findings:: 66-year-old woman who presents for evaluation for TBSE.? She has concerns about a lesion on her nasal columella that has increased in size over the last several months.? She states it has been removed twice in the past and has recurred.? She has also used Aldara on this nasal columellar lesion.? It did not show any improvement.? She also has a concern about a lesion right lower cheek that has increased in size over the last several months.? She denies trauma.? She denies fever.? She denies bleeding. Patient was informed of the risks and complications of the procedure including alternatives to surgery. These were discussed with the patient personally. Patient voices understanding and wishes to proceed. Some of the risks and complications were included in a form from the [employer]. Encouraged patient to stop smoking as it may have deleterious effects on wound healing. Frozen section right lower cheek - actinic keratosis and no carcinoma seen. Frozen section nasal columella - verrucous keratosis with atypia and no carcinoma seen. Surgeon: Ryley Saha automotive maintenance technician: None Type of Anesthesia: Local MAC (xylocaine with epinephrine and IV sedation.) Anesthesiologist: Darrell Avila MD and Maribel Murphy CRNA. Specimen's removed: 1. Lesion right lower cheek to Pathology as a frozen section. 2. Lesion nasal columella to Pathology as a frozen section. 3. Verrucous keratosis with atypia nasal columella to Pathology. Drains: None. Estimated Blood Loss (mL): 5. Description of Procedure: Patient was taken to OR in supine position and was given IV sedation. The face was prepped and draped in the usual fashion. SCD's were placed for DVT prophylaxis. Perioperative antibiotics were given intravenously. The lesions nasal columella and right lower cheek were infiltrated with xylocaine and epinephrine. After waiting 5 minutes for the anesthetic to take effect, I excised the right lower cheek lesion in an intradermal fashion, and I excised the nasal columellar lesion in a circular fashion into the subcutaneous tissue with a 1 mm margin in all directions. A suture was placed at the 12 oclock pos ition for pathology orientation. Both lesions were sent to Pathology as frozen sections for analysis to rule out carcinoma. The right lower cheek lesion was an actinic keratosis and no carcinoma seen. The nasal columellar lesion showed a verrucous keratosis with atypia and no carcinoma seen. Further excision of the nasal columellar lesion was done in a longitudinal elliptical fashion with a 1 m m margin in all directions combined with a 1 mm margin from the biopsy, thus making it a 7 mm excision and 1.7 cm layered closure. The incision extended up to the nasal tip. A suture was marked at 12 oclock position for pathology orientation. The lesion was sent to Pathology for analysis to rule out carcinoma. Hemostasis was obtained with electrocautery. After the excision, no cartilage was seen. The wound was closed in a layered fashion with 5-0 Monocryl interrupted sutures for the deep dermis and subcutaneous tissue. The skin was approximated with 6-0 Prolene simple interrupted sutures. Antibiotic ointment was applied to the suture line. For the actinic keratosis right lower cheek, hemostasis was obtained with gauze compression and silver nitrate chemical cauterization. Antibiotic ointment was applied. Patient tolerated the procedure well and was sent to PACU in satisfactory condition. Patient will be sent home on antibiotics and pain medication. She will keep her head elevated during the initial postoperative period. Patient will followup in a week for a wound check and for discussion of the pathology report and for removal of the sutures. After the silver nitrate chemical cauterization comes off the right lower cheek wound, will then begin Aldara therapy (apply daily at night 5 days per week for 6 weeks). Grafts/Implants Used: None. Procedure Start Time: 07:52 Procedure Stop Time: 08:55 Complications None. Admit VTE Documentation VTE Present on Admission: No VTE Mechan Device Prophylaxis: SCD's VTE Pharm Prophylaxis ordered?: No Addendum Addendum: Surgery Charges CPT - 96348 ICD-10 - L82.1, D49.2, Z80.8, F17.200 36038 L82.1, D49.2, Z80.8, F17.200 90776 L57.0, D49.2, Z80.8, F17.200
--- NOTE | 2022-01-09 09:01 | DCINST_ITS ---
Discharge Instructions Diet Discharge Diet: No restrictions Activity Discharge Activity: May Shower (in two days.) and - (no heavy lifting.) May shower in (days): 2 Weight Bearing Status: Weight bearing as tolerated Lifting Restrictions: 20 lbs. Keep extremity elevated above heart level: - (elevate head.) Dressing / Incision Call your doctor if your incision/area has: Continuous Slow Oozing, Sudden Increased Bleeding, Increased Pain/ Swelling, Increased Redness, Foul Smelling Discharge and Swelling at the incision site Call your doctor if you observe: Fever of 101 or Higher, Coldness, Increased Pain, Shortness of breath, Chest pain, Calf discomfort and Uncontrolled pain Cleanse incision/area with: Soap & Water (may get incisions wet in the shower in two days.) Follow Up Care Please Follow Up With: Ryley Saha MD When: one week. call [phone] for appt. Test Results: Test results from this visit will be discussed in further detail at your follow- up appointment, if applicable. Discharge Plan Admission Primary Reason for Your Visit: excision lesion nasal columella. Attending Provider: Ryley Saha Primary Care Provider: Jack Terry Discharge Orders/Prescriptions Prescriptions: New clindamycin HCl [Cleocin HCl] 300 mg capsule 300 mg PO TID Qty: 12 0RF L.acidoph,saliva-B.bif-S.therm [Acidophilus Probiotic Blend] 175 mg capsule 1 cap PO DAILY Qty: 10 0RF oxycodone-acetaminophen [Percocet] 5-325 mg tablet 1 tab PO Q6H PRN (Reason: pain (scale score 7-10)) 4 Days Qty: 15 0RF Rx Instructions: 15 tabs (fifteen) Continued atenolol 50 mg tablet 50 mg PO QDAY hydrochlorothiazide 12.5 mg tablet 12.5 mg PO QDAY budesonide-formoterol [Symbicort] 160-4.5 mcg/actuation HFA aerosol inhaler 2 puff INHALATION Q12H tiotropium bromide [Spiriva Respimat] 2.5 mcg/actuation mist 2 puff INHALATION QDAY omeprazole 20 mg capsule,delayed release(DR/EC) 20 mg PO DAILY albuterol sulfate 90 mcg/actuation HFA aerosol inhaler 2 puff INHALATION Q4H PRN (Reason: Sob &/Or Wheezing) amlodipine 10 mg tablet 5 mg PO DAILY rosuvastatin 40 mg tablet 40 mg PO DAILY aspirin [Adult Low Dose Aspirin] 81 mg tablet,delayed release (DR/EC) 81 mg PO DAILY cyclobenzaprine 10 mg tablet 10 mg PO QAM PRN (Reason: MUSCLES) hydrocodone-acetaminophen 5-325 mg tablet 1.5 tab PO Q8H PRN (Reason: Pain) prednisone 20 mg Tablet 20 - 50 mg PO DAILY PRN (Reason: BREATHING) epinephrine 0.3 mg/0.3 mL Auto-Injector 0.3 mg IM Q4H PRN (Reason: ALLERGIC RXN) calcium phos,dibas-vitamin D3 77-400 mg-unit Tablet 1 tab PO DAILY carboxymethylcellulose sodium 1 % Drops, Liquid Gel 1 drp EACH EYE BID PRN PRN (Reason: Dry Eyes) PreserVision AREDS-2 250-90-40-1 mg Capsule 1 tab PO DAILY pregabalin [Lyrica] 100 mg capsule 100 mg PO BID Referrals / Follow Up: Ryley Saha MD [Med Staff - Active Staff] - (followup one week.) Jack Terry DO [Primary Care Provider] - Disposition Disposition (needs filled in before D/C Order can be placed): Home, Self Care
--- NOTE | 2022-01-09 09:50 | SUR.PHASEII ---
PT SITTING UP IN BED GETTING DRESSED WHEN THIS NURSE WENT INTO ROOM. SHE STATES THAT SHE IS READY TO LEAVE, DOES NOT WANT A SNACK, DENIES PAIN. STATES SHE IS LEAVING. WENT OVER DC INSTRUCTIONS WITH PATIENT AND FAMILY AND CALLED FOR A WHEELCHAIR TO TAKE TO DOOR.
== END 2022-01-09 09:53 | disposition home or self-care (01) ==
LOC: SDC 05:56 → AC 05:58
PROVIDERS: PCP Student in an Organized Health Care Education/Training Program; Referring Provider Surgery; Visit Provider Surgery
PROC: (CPT 11441; principal; 2022-01-09 07:15)
DX: L82.1 Other seborrheic keratosis (principal); J44.9 Chronic obstructive pulmonary disease, unspecified; I47.1 Supraventricular tachycardia; L57.0 Actinic keratosis; I25.10 Atherosclerotic heart disease of native coronary artery without angina pectoris; I25.2 Old myocardial infarction; I10 Essential (primary) hypertension; E78.00 Pure hypercholesterolemia, unspecified; M19.90 Unspecified osteoarthritis, unspecified site; F17.200 Nicotine dependence, unspecified, uncomplicated; Z79.82 Long term (current) use of aspirin; Z79.899 Other long term (current) drug therapy; Z80.8 Family history of malignant neoplasm of other organs or systems
CPT/HCPCS: 11441; 12051; 11310; 00300; 88305; 88331; 94640; J7120; J2405

== ENCOUNTER 2022-01-28 19:21 | Emergency (ER) | payer MEDICARE, SELFPAY ==
[2022-01-28 19:22] VITALS: BP 141/90; PULSE 89; RESP 14; TEMP 36.9; O2SAT 93; BMI 30.2
[2022-01-28] MEDS: Ipratropium/Albuterol Sulfate 3 ML AMPUL.NEB INHALATION (20:02)
[2022-01-28 20:03] VITALS: PULSE 92; RESP 16
--- NOTE | 2022-01-28 20:07 | EDS_ITS ---
HPI History of Present Illness Chief Complaint: Cough Detail of Chief Complaint: Chronic cough that is now productive Informant: patient Onset/Context/Timing Onset: Days Context: gradual and activity on onset Timing: Intermittent and Waxes and wanes Quality: Positive for Dyspnea on exertion and Wheezing; Negative for Orthopnea or PND Current Severity: Mild Maximum Severity: Moderate Worsened by: Exertion and Coughing Relieved by: Nothing Associated Symptoms cough, rhinorrhea, post nasal drip, sore throat and white sputum; Negative for ear pain, fever, subjective, chills, sweats, clear sputum, yellow sputum or green sputum Chest Pain: Positive for None Narrative Narrative: Patient is a 66-year-old woman with history of COPD who is a smoker and presents with cough that started several days ago. Cough became productive the past 2 days. She denies fever, chills night sweats. She does endorse rhinorrhea, congestion, postnasal drainage and sore throat. She is presently on 20 mg of prednisone. She does not see a county coroner. She denies history of VTE. She denies leg pain, swelling discoloration. She denies chest pain of any type. She denies GI symptoms. She denies symptoms. PE Risk Factors: Negative for Cancer, OCP + Smoking + > 35, Prior DVT or PE, Recent immobilization, Recent surgery or Recent travel Prior similar symptoms: Yes Recent Illness/Hospitalization: No PFSH PFSH Medical History Actinic keratosis Arthritis Asthma Atherosclerosis of coronary artery of [place] heart without angina pectoris Benign keratosis Cancer Cardiology follow-up encounter Cataract Chronic back pain Chronic cough COPD (chronic obstructive pulmonary disease) Easy bruising Essential hypertension Excessive bleeding Family history of skin cancer Gastric reflux GERD (gastroesophageal reflux disease) High cholesterol History of chronic back pain History of echocardiography History of heart attack History of non-ST elevation myocardial infarction (NSTEMI) (01/2019) History of stress test History of ulceration Hyperlipidemia Hypertension Injury of back Leg cramps Macular degeneration Neoplasm of skin of nasal tip Neoplasm of skin of right cheek Neoplasm of unspecified behavior of bone, soft tissue, and skin Neuropathy Nicotine dependence Pneumonia Restless legs Seasonal allergies Shortness of breath on exertion Smoker SVT (supraventricular tachycardia) Uses wheelchair Verrucous keratosis Wears dentures Wears glasses Home Medications atenolol 50 mg tablet 50 mg PO QDAY 09/16/17 [History Last Taken 01/09/22] budesonide-formoterol HFA 160 mcg-4.5 mcg/actuation aerosol inhaler (Symbicort) 2 puff inhalation Q12H 09/16/17 [History Last Taken 01/09/22] hydrochlorothiazide 12.5 mg tablet 12.5 mg PO QDAY 09/16/17 [History Last Taken 06/16/19] tiotropium bromide 2.5 mcg/actuation mist for inhalation (Spiriva Respimat) 2 puff inhalation QDAY 09/16/17 [History Last Taken 01/09/22] albuterol sulfate 90 mcg/actuation aerosol inhaler 2 puff inhalation Q4H PRN Sob &/Or Wheezing 04/18/19 [History Last Taken 01/09/22] omeprazole 20 mg capsule,delayed release 20 mg PO DAILY 04/19/19 [History Last Taken 01/09/22] pregabalin 100 mg capsule (Lyrica) 100 mg PO BID 06/12/19 [History Last Taken 06/16/19] aspirin 81 mg tablet,delayed release (Adult Low Dose Aspirin) 81 mg PO DAILY 04/23/20 [History Last Taken Unknown] cyclobenzaprine 10 mg tablet 10 mg PO QAM PRN MUSCLES 04/23/20 [History Last Taken Unknown] rosuvastatin 40 mg tablet 40 mg PO DAILY 04/23/20 [History Last Taken Unknown] hydrocodone-acetaminophen 5-325mg 5mg-325mg 1.5 tab PO Q8H PRN Pain 04/23/21 [History Last Taken Unknown] amlodipine 10 mg tablet 5 mg PO DAILY 11/28/21 [History Last Taken 01/09/22] calcium phosphate,dibasic 77 mg-vitamin D3 400 unit tablet 1 tab PO DAILY SUPPLEMENT 01/02/22 [History Last Taken Unknown] carboxymethylcellulose sodium 1 % eye liquid gel drops 1 drp EACH EYE BID PRN PRN Dry Eyes 01/02/22 [History Last Taken Unknown] epinephrine 0.3 mg/0.3 mL injection, auto-injector 0.3 mg IM Q4H PRN ALLERGIC RXN 01/02/22 [History Last Taken Unknown] prednisone 20 mg tablet 20 - 50 mg PO DAILY PRN BREATHING 01/02/22 [History Last Taken Unknown] vit C 250 mg-vit E 90 mg-zinc 40 mg-copper 1 [id number] capsule (PreserVision AREDS-2) 1 tab PO DAILY 01/02/22 [History Last Taken Unknown] L.acidophil,salivari-Bifido bifidum-Strep thermoph 175 mg capsule (Acidophilus Probiotic Blend) 1 cap PO DAILY #10 caps 01/09/22 [Rx Last Taken Unknown] doxycycline monohydrate 100 mg capsule 100 mg PO BID #10 CAPSULES 01/28/22 [Rx Last Taken Unknown] prednisone 20 mg tablet 60 mg PO DAILY #12 TABLETS 01/28/22 [Rx Last Taken Unknown] Allergy/AdvReac Type Severity Reaction Status Date / Time bee venom protein (honey bee) Allergy Severe Anaphylaxis Verified 01/28/22 19:22 Penicillins Allergy Severe Anaphylaxis Verified 01/28/22 19:22 clemastine [From Tavist] Allergy Intermediate Unknown Verified 01/28/22 19:22 pseudoephedrine [From Tavist] Allergy Intermediate Unknown Verified 01/28/22 19:22 meloxicam Allergy Vomiting Verified 01/28/22 19:22 tramadol AdvReac Nausea/Vom/ Verified 01/28/22 19:22 Diarrhea Family History Mother Heart disease Hypertension High cholesterol Osteoporosis Skin cancer CVA (cerebral vascular accident) Father Heart disease Hypertension High cholesterol CAD (coronary artery disease) Myocardial infarction CVA (cerebral vascular accident) Brother Asthma Seizures Other Family history of skin cancer Surgical History History of actinic keratosis History of cardiac catheterization History of D&C History of discectomy (01/2019) History of hemilaminectomy (01/13/19) History of left heart catheterization (01/11/19) History of selective injection of anesthetic agent around lumbar nerve root Spinal cord stimulator status (~06/2020) Social History (Updated 01/28/22 @ 20:[address] Frank Conn MD) household members: none Smoking Status: Current every day smoker tobacco type: cigarettes alcohol intake: never substance use type: does not use caffeine: Yes ROS ROS ED Constitutional Constitutional ED: Denies chills, fever(s), sweats or weight loss Eyes Eyes: Denies blurry vision, change in vision or diplopia ENT ENT ED: Reports rhinorrhea and sore throat; Denies ear pain Cardiovascular Cardiovascular: Denies chest pain, orthopnea, palpitations, paroxysmal nocturnal dyspnea or racing heartbeat Respiratory/Chest Respiratory/Chest: Reports cough, dyspnea and dyspnea on exertion; Denies orthopnea or paroxysmal nocturnal dyspnea Gastrointestinal Gastrointestinal: Denies abdominal pain, diarrhea, nausea or vomiting Genitourinary Genitourinary ED: Denies dysuria or urinary frequency Musculoskeletal Musculoskeletal: Denies arthralgias, back pain or myalgias Integumentary Denies abscess, Abrasions or rash Neurologic Neurologic: Denies headache(s) or paresthesias Hematologic/Lymphatic Hematologic/Lymphatic: Denies easy bleeding or easy bruising EXAM Physical Exam Const Vital Signs: 01/28/22 19:22 01/28/22 20:03 Temperature 98.4 F Temperature Source Temporal Pulse Rate 89 92 Respiratory Rate 14 16 Blood Pressure 141/90 H Blood Pressure Mean 107 Pulse Ox 93 Oxygen Delivery Method Room Air Positive well nourished and well developed General Appearance ED: well developed and NAD; Negative for pallor HEENT Reports moist mucous membranes HEENT Narrative: Head is atraumatic no cephalic. Ears normal. TMs normal. Nares patent. Uvula midline. No erythema or exudate of the posterior pharynx. No deviation of tongue or protrusion. Eyes PERRL and EOMs intact bilaterally General Eye ED: Negative for pale conjunctiva Neck no lymphadenopathy, supple, no meningeal signs and no JVD Neck Narrative: Trachea is midline. There is no carotid bruit. Resp normal respiratory effort and No clear to auscultation bilaterally Auscultation: wheezes expiratory wheezes (Expiratory phase is prolonged.) and throughout Cardio regular rate, regular rhythm, S1 normal heart sound, S2 normal heart sound and no murmurs GI non-tender, non-distended and no masses Auscultation: normoactive bowel sounds Palpation: soft Back/Spine no CVA tenderness and normal to inspection Extremity normal to inspection General Extremety ED: Negative for edema, tenderness or other findings General Extremity: Negative for edema or other findings Neuro oriented x3, CN's II-XII intact bilaterally and no sensory deficits noted Belcher Coma Scale: document GCS findings Spontaneous Obeys Commands Oriented 15 Sensorium / Orientation: alert Motor Exam: strength 5/5 throughout Psych mental status grossly normal Thought Process: normal thought process Skin no wounds and skin turgor normal General Skin Exam: Negative for jaundice or pallor MDM MDM MDM Narrative Medical decision making narrative: Patient has history of COPD and chronic bronchitis. She notes productive cough with change in color sputum. Will obtain chest x-ray to evaluate for COPD e xacerbation versus pneumonia. Patient was treated with DuoNeb and albuterol. She also received 60 mg of prednisone. Plan discharge with short course of doxycycline and prednisone. She is follow-up with her doctor. Radiography Chest X-Ray - ED: 2 View and Read by ED Physician (Chronic change as. Cardiac silhouette size normal. Perihilar region unremarkable. Osseous trucks unremarkable. There is a nerve stimulator noted. This is independently reviewed and interpreted by me at [id number].) Discharge Plan Triage Chief Complaint: Cough ED Provider: Frank Conn Dx/Rx/DC Orders Clinical Impression: Acute exacerbation of chronic obstructive pulmonary disease, Acute bronchitis Instructions: ED COPD Flare Prescriptions: New prednisone 20 mg tablet 60 mg PO DAILY Qty: 12 0RF doxycycline monohydrate 100 mg capsule 100 mg PO BID Qty: 10 0RF No Action atenolol 50 mg tablet 50 mg PO QDAY hydrochlorothiazide 12.5 mg tablet 12.5 mg PO QDAY budesonide-formoterol [Symbicort] 160-4.5 mcg/actuation HFA aerosol inhaler 2 puff INHALATION Q12H tiotropium bromide [Spiriva Respimat] 2.5 mcg/actuation mist 2 puff INHALATION QDAY omeprazole 20 mg capsule,delayed release(DR/EC) 20 mg PO DAILY albuterol sulfate 90 mcg/actuation HFA aerosol inhaler 2 puff INHALATION Q4H PRN (Reason: Sob &/Or Wheezing) amlodipine 10 mg tablet 5 mg PO DAILY rosuvastatin 40 mg tablet 40 mg PO DAILY aspirin [Adult Low Dose Aspirin] 81 mg tablet,delayed release (DR/EC) 81 mg PO DAILY cyclobenzaprine 10 mg tablet 10 mg PO QAM PRN (Reason: MUSCLES) hydrocodone-acetaminophen 5-325 mg tablet 1.5 tab PO Q8H PRN (Reason: Pain) prednisone 20 mg Tablet 20 - 50 mg PO DAILY PRN (Reason: BREATHING) epinephrine 0.3 mg/0.3 mL Auto-Injector 0.3 mg IM Q4H PRN (Reason: ALLERGIC RXN) calcium phos,dibas-vitamin D3 77-400 mg-unit Tablet 1 tab PO DAILY carboxymethylcellulose sodium 1 % Drops, Liquid Gel 1 drp EACH EYE BID PRN PRN (Reason: Dry Eyes) PreserVision AREDS-2 250-90-40-1 mg Capsule 1 tab PO DAILY L.acidoph,saliva-B.bif-S.therm [Acidophilus Probiotic Blend] 175 mg capsule 1 cap PO DAILY Qty: 10 0RF pregabalin [Lyrica] 100 mg capsule 100 mg PO BID Primary Care Provider: Jack Terry Referrals: Jack Terry DO [Primary Care Provider] - 3-5 Days if not improving Disposition Disposition: Home, Self Care
[2022-01-28] MEDS: predniSONE 20 MG Tablet 60 MG PO (20:18)
[2022-01-28] MEDS: Albuterol 2.5 MG/3 ML VIAL.NEB. INHALATION ×3 (20:27)
--- NOTE | 2022-01-28 21:05 | RAD_ITS ---
STUDY: X-RAY CHEST REASON FOR EXAM: Female, 66 years old. Productive cough, wheezing history of COPD TECHNIQUE: XR Chest 2 Views COMPARISON: 2. FINDINGS: There is atherosclerotic calcification of the aortic arch with tortuosity. There are diffuse degenerative changes of the visualized thoracic spine. There is degenerative osteoarthritis of the bilateral shoulders. Metallic leads in the spinal canal may suggest spinal stimulator leads. Normal size heart. Normal mediastinum and nitin. Normal visualized pulmonary arteries. There is no demonstrated abnormality of the visualized soft tissue structures of the upper abdomen. RAD/Chest PA and Lateral IMPRESSION: There are no acute findings. Electronically Signed: Sebastian Cha MD at 21:16 EST ,
[2022-01-28] MEDS: Doxycycline 100 MG CAPSULE PO (21:31)
== END 2022-01-28 21:35 | disposition home or self-care (01) ==
PROVIDERS: Emergency Provider Emergency Medicine; PCP Student in an Organized Health Care Education/Training Program; Visit Provider Emergency Medicine
DX: J44.1 Chronic obstructive pulmonary disease with (acute) exacerbation (principal); J20.9 Acute bronchitis, unspecified; J02.9 Acute pharyngitis, unspecified; I10 Essential (primary) hypertension; I25.10 Atherosclerotic heart disease of native coronary artery without angina pectoris; R05.3 Chronic cough; Z79.52 Long term (current) use of systemic steroids
CPT/HCPCS: 71046; 94640; 99283

== ENCOUNTER → 2022-06-29 | Outpatient (CLI) | payer MEDICARE, SELFPAY ==
--- NOTE | 2022-06-30 05:44 | PFTCOMP ---
COMPLETE PULMONARY FUNCTION TEST INTERPRETATION Brief HPI: Patient is a 66-year-old female, currently under the care of Dr. Kinney, who presents to [facility] for complete pulmonary function tests secondary to diagnosis of wheezing. Respiratory therapist reports good effort and reproducible results. Interpretation: Forced expiration spirometry shows a severe large airways obstructive ventilatory defect with an FEV1 of 44% predicted. There is a significant bronchodilator response in FVC and FEV1 by strict ATS criteria. Spirograms are of good quality and plateau slowly, indicating slowly emptying areas of the lungs. The respiratory flow volume loop shows decreased expiratory flow rates at all lung volumes consistent with airway obstruction. Lung volumes by body plethysmography show a slightly decreased total lung capacity at 3.48 L, 75% predicted. FRC and RV are elevated out of proportion. Lung volume measurements are consistent with air-trapping. Diffusion capacity by carbon monoxide is normal at 72% predicted. The airway resistance is elevated. No previous pulmonary function tests were available for review. Impression: Partially reversible severe mixed ventilatory defect resulting in air trapping, but relatively preserved diffusion capacity
== END | disposition home or self-care (01) ==
LOC: PSN 09:01
PROVIDERS: PCP Student in an Organized Health Care Education/Training Program; Referring Provider Internal Medicine; Visit Provider Internal Medicine
DX: J30.89 Other allergic rhinitis (principal); J30.2 Other seasonal allergic rhinitis; F17.200 Nicotine dependence, unspecified, uncomplicated; R06.2 Wheezing
CPT/HCPCS: 94060; 94726; 94729

== ENCOUNTER → 2022-09-03 | Outpatient (CLI) | payer MEDICARE, SELFPAY ==
--- NOTE | 2022-09-03 10:46 | RAD_ITS ---
INDICATION: BACK PAIN EXAMINATION/TECHNIQUE: X-RAY - XR Spine Thoracic 3 Views COMPARISON: 03/11/2021 FINDINGS: VERTEBRAE: Preserved vertebral body height. No fracture. No spondylolisthesis. Preservation of the normal thoracic kyphosis. No significant facet arthropathy. Stimulator leads redemonstrated. DISCS: Endplate disease at all levels with mild multilevel disc space loss. INCLUDED CHEST/ABDOMEN: No acute abnormalities. RAD/Thoracic Spine 3 Views IMPRESSION: Diffuse endplate and multilevel disc disease similar to 03/11/2021. Electronically Signed: Wesley La MD at 18:18 EDT ,
== END | disposition home or self-care (01) ==
LOC: MTRAD 10:44
PROVIDERS: PCP Student in an Organized Health Care Education/Training Program; Referring Provider Nurse Practitioner Acute Care; Visit Provider Nurse Practitioner Acute Care
DX: M47.814 Spondylosis without myelopathy or radiculopathy, thoracic region (principal)
CPT/HCPCS: 72072

== ENCOUNTER 2022-11-10 14:55 | Emergency (ER) | payer MEDICARE, SELFPAY ==
[2022-11-10 14:56] VITALS: BP 139/75; PULSE 69; RESP 15; TEMP 36.3; O2SAT 94; BMI 31.6
--- NOTE | 2022-11-10 16:12 | EX.ED.GENINJ ---
HPI History of Present Illness Chief Complaint: Laceration Narrative Narrative: Patient presents with a left forearm abrasion that happened just prior to arrival. This happened in the kitchen due to blunt trauma. Tetanus is up-to-date. No other injury. No bony tenderness PFSH [facility] Medical History Actinic keratosis Arthritis Aspergillus fumigatus Asthma Atherosclerosis of coronary artery of [place] heart without angina pectoris Benign keratosis Cancer Cardiology follow-up encounter Cataract Chronic back pain Chronic cough Chronic obstructive asthma (with obstructive pulmonary disease) COPD (chronic obstructive pulmonary disease) Easy bruising Essential hypertension Excessive bleeding Family history of skin cancer Gastric reflux GERD (gastroesophageal reflux disease) High cholesterol History of chronic back pain History of echocardiography History of heart attack History of non-ST elevation myocardial infarction (NSTEMI) (01/2019) History of stress test History of ulceration House dust mite allergy Hyperlipidemia Hypertension Injury of back Leg cramps Lung nodule seen on imaging study Macular degeneration Neoplasm of skin of eyebrow Neoplasm of skin of hand Neoplasm of skin of nasal tip Neoplasm of skin of right cheek Neoplasm of skin of shoulder Neoplasm of skin of thigh Neoplasm of unspecified behavior of bone, soft tissue, and skin Neuropathy Nicotine dependence Perennial allergic rhinitis with seasonal variation Pneumonia Restless legs Seasonal allergies Shortness of breath on exertion Smoker SVT (supraventricular tachycardia) Uses wheelchair Verrucous keratosis Wears dentures Wears glasses Home Medications atenolol 50 mg tablet 50 mg PO QDAY 09/16/17 [History Last Taken 01/09/22] budesonide-formoterol HFA 160 mcg-4.5 mcg/actuation aerosol inhaler (Symbicort) 2 puff inhalation Q12H 09/16/17 [History Last Taken 01/09/22] hydrochlorothiazide 12.5 mg tablet 12.5 mg PO QDAY 09/16/17 [History Last Taken 06/16/19] tiotropium bromide 2.5 mcg/actuation mist for inhalation (Spiriva Respimat) 2 puff inhalation QDAY 09/16/17 [History Last Taken 01/09/22] albuterol sulfate 90 mcg/actuation aerosol inhaler 2 puff inhalation Q4H PRN Sob &/Or Wheezing 04/18/19 [History Last Taken 01/09/22] omeprazole 20 mg capsule,delayed release 20 mg PO DAILY 04/19/19 [History Last Taken 01/09/22] pregabalin 100 mg capsule (Lyrica) 100 mg PO BID 06/12/19 [History Last Taken 06/16/19] aspirin 81 mg tablet,delayed release (Adult Low Dose Aspirin) 81 mg PO DAILY 04/23/20 [History Last Taken Unknown] cyclobenzaprine 10 mg tablet 10 mg PO QAM PRN MUSCLES 04/23/20 [History Last Taken Unknown] rosuvastatin 40 mg tablet 40 mg PO DAILY 04/23/20 [History Last Taken Unknown] hydrocodone-acetaminophen 5-325mg 5mg-325mg 1.5 tab PO Q8H PRN Pain 04/23/21 [History Last Taken Unknown] calcium phosphate,dibasic 77 mg-vitamin D3 400 unit tablet 1 tab PO DAILY SUPPLEMENT 01/02/22 [History Last Taken Unknown] carboxymethylcellulose sodium 1 % eye liquid gel drops 1 drp EACH EYE BID PRN PRN Dry Eyes 01/02/22 [History Last Taken Unknown] epinephrine 0.3 mg/0.3 mL injection, auto-injector 0.3 mg IM Q4H PRN ALLERGIC RXN 01/02/22 [History Last Taken Unknown] prednisone 20 mg tablet 20 - 50 mg PO DAILY PRN BREATHING 01/02/22 [History Last Taken Unknown] vit C 250 mg-vit E 90 mg-zinc 40 mg-copper 1 [id number]-rhrinq-rbfmlf capsule (PreserVision AREDS-2) 1 tab PO DAILY 01/02/22 [History Last Taken Unknown] ipratropium bromide 21 mcg (0.03 %) nasal spray 2 spray intranasal BID-TID PRN allergy symptoms #30 mL 05/18/22 [Rx Last Taken Unknown] mometasone 220 mcg/actuation(120 doses)breath activated powder inhaler (Asmanex Twisthaler) 2 inh inhalation BID #1 ea 07/07/22 [Rx Last Taken Unknown] fluticasone furoate 100 mcg/actuation blister powder for inhalation 1 inh inhalation DAILY #30 ea 07/09/22 [Rx Last Taken Unknown] Allergy/AdvReac Type Severity Reaction Status Date / Time bee venom protein (honey bee) Allergy Severe Anaphylaxis Verified 11/10/22 14:58 Penicillins Allergy Severe Anaphylaxis Verified 11/10/22 14:58 clemastine [From Tavist] Allergy Intermediate Unknown Verified 11/10/22 14:58 pseudoephedrine [From Tavist] Allergy Intermediate Unknown Verified 11/10/22 14:58 meloxicam Allergy Vomiting Verified 11/10/22 14:58 tramadol AdvReac Nausea/Vom/ Verified 11/10/22 14:58 Diarrhea Family History Mother Heart disease Hypertension High cholesterol Osteoporosis Skin cancer CVA (cerebral vascular accident) Father Heart disease Hypertension High cholesterol CAD (coronary artery disease) Myocardial infarction CVA (cerebral vascular accident) Brother Asthma Seizures Other Family history of skin cancer Surgical History History of actinic keratosis History of cardiac catheterization History of D&C History of discectomy (01/2019) History of hemilaminectomy (01/13/19) History of left heart catheterization (01/11/19) History of selective injection of anesthetic agent around lumbar nerve root Spinal cord stimulator status (~06/2020) Social History household members: none Smoking Status: Current every day smoker tobacco type: cigarettes alcohol intake: never substance use type: does not use caffeine: Yes ROS ROS ED ROS Narrative Past medical history: none Medications: Reviewed Social history: Noncontributory Review of systems: Musculoskeletal: Left forearm laceration Skin: Laceration as above Neurological: No weakness or paresthesias Hematologic: No easy bleeding or easy bruising EXAM Physical Exam Narrative Exam Narrative: Physical exam General: Patient does not appear in significant distress . Head: Normocephalic, Atraumatic Neck: No C-spine tenderness Cardiovascular: Normal distal pulses Back: Nontender, Normal Inspection. Extremities: There is a flap laceration about 14 cm on the left forearm, there is another 6 cm laceration just adjacent to this. Both these are quite superficial and the skin is quite thin Skin: As above Neurological: Normal strength and sensation Const Vital Signs: 11/10/22 14:56 Temperature 97.4 F L Temperature Source Temporal Pulse Rate 69 Respiratory Rate 15 Blood Pressure 139/75 H Blood Pressure Mean 96 Pulse Ox 94 Oxygen Delivery Method Room Air MDM MDM MDM Narrative Medical decision making narrative: Because of the skin thickness I cannot suture it would break, we will use Steri-Strips per RN. Tetanus up-to-date. I talked to and the patient and they are okay with the plan. At this time an x-ray of the forearm is not needed there is no bony tenderness. Discharge Plan Triage Chief Complaint: Laceration ED Provider: Wesley Figueroa Dx/Rx/DC Orders Clinical Impression: Forearm laceration, Forearm pain Instructions: ED Laceration Extremity Prescriptions: No Action atenolol 50 mg tablet 50 mg PO QDAY hydrochlorothiazide 12.5 mg tablet 12.5 mg PO QDAY budesonide-formoterol [Symbicort] 160-4.5 mcg/actuation HFA aerosol inhaler 2 puff INHALATION Q12H tiotropium bromide [Spiriva Respimat] 2.5 mcg/actuation mist 2 puff INHALATION QDAY omeprazole 20 mg capsule,delayed release(DR/EC) 20 mg PO DAILY albuterol sulfate 90 mcg/actuation HFA aerosol inhaler 2 puff INHALATION Q4H PRN (Reason: Sob &/Or Wheezing) rosuvastatin 40 mg tablet 40 mg PO DAILY aspirin [Adult Low Dose Aspirin] 81 mg tablet,delayed release (DR/EC) 81 mg PO DAILY cyclobenzaprine 10 mg tablet 10 mg PO QAM PRN (Reason: MUSCLES) hydrocodone-acetaminophen 5-325 mg tablet 1.5 tab PO Q8H PRN (Reason: Pain) ipratropium bromide 21 mcg (0.03 %) spray,non-aerosol 2 spray intranasal BID-TID PRN (Reason: allergy symptoms) Qty: 30 5RF Rx Instructions: administer into each nostril Asmanex Twisthaler 220 mcg/ actuation (120) aerosol powdr breath activated 2 inh inhalation BID Qty: 1 4RF fluticasone furoate 100 mcg/actuation blister with device 1 inh inhalation DAILY Qty: 30 8RF prednisone 20 mg Tablet 20 - 50 mg PO DAILY PRN (Reason: BREATHING) epinephrine 0.3 mg/0.3 mL Auto-Injector 0.3 mg IM Q4H PRN (Reason: ALLERGIC RXN) calcium phos,dibas-vitamin D3 77-400 mg-unit Tablet 1 tab PO DAILY carboxymethylcellulose sodium 1 % Drops, Liquid Gel 1 drp EACH EYE BID PRN PRN (Reason: Dry Eyes) PreserVision AREDS-2 250-90-40-1 mg Capsule 1 tab PO DAILY pregabalin [Lyrica] 100 mg capsule 100 mg PO BID Primary Care Provider: Jack Terry Referrals: Jack Terry DO [Primary Care Provider] - 2 Days for wound check
== END 2022-11-10 16:38 | disposition home or self-care (01) ==
PROVIDERS: Emergency Provider Emergency Medicine; PCP Student in an Organized Health Care Education/Training Program; Visit Provider Emergency Medicine
DX: S51.812A Laceration without foreign body of left forearm, initial encounter (principal); M79.602 Pain in left arm; I25.10 Atherosclerotic heart disease of native coronary artery without angina pectoris; I25.2 Old myocardial infarction; X58.XXXA Exposure to other specified factors, initial encounter
CPT/HCPCS: 99282

== ENCOUNTER → 2023-12-17 | Outpatient (CLI) | payer MEDICARE, SELFPAY ==
--- NOTE | 2023-12-17 | LES_PTH ---
PATIENT: AUDREY OROURKE [facility][id number] AGE/SX: 68/F ROOM: RE12/17/[address]: Dr. Fabio Moreira MD : 1955 BED: DIS: 12/17/2023 SPEC #: [id number] RECD: 12/17/23 12:03 STATUS: YUE RESundeep #: [id number] DELONTE: 12/17/23 00:[address]: Fabio Moreira DEPT: SURGICAL PATHOLOGY RECD BY: Kodak Shultz ENTERED: 12/17/23 13:37 SP TYPE: Lesion OTHR DR: Dr. Jack Terry DO Tissues: A - Skin of arm B - Skin of hand and finger, NOS C - Skin of forearm, NOS Procedures: Surgery Specimen Level IV HEADER OPERATION: Excision of skin lesions x3 upper extremities PRE-OP DIAGNOSIS: Upper extremities TISSUE SUBMITTED: A- Right lateral area lesion (arm), B- Left hand lesion, C- Long lateral/ short proximal left forearm lesion MICROSCOPIC DIAGNOSIS A. Right arm lesion, lateral area, excisional biopsy: Verrucous keratosis with mild actinic keratosis features. Solar elastosis. Negative for malignancy. B. Left hand lesion, excisional biopsy: Verrucous keratosis with mild actinic keratosis features. Solar elastosis. Negative for malignancy. C. Left forearm lesion, excisional biopsy: Invasive well differentiated squamous cell carcinoma, keratoacanthomatous type, completely excised in the planes of section examined. Actinic keratosis and solar elastosis. See comment. 12/20/2023 COMMENT C. The tumor measures 0.4cm in width and up to 0.2cm in depth. Perineural or lymph-vascular invasion is not identified. MICROSCOPIC DESCRIPTION Slides are reviewed. GROSS DESCRIPTION A. Received in fixative is one container labeled with the patient's name and designated Right lateral arm. The specimen consists of a light-francis shave biopsy of skin measuring 0.8 x 0.5 x 0.1cm. The specimen is inked and totally submitted in one cassette for post fixation sections. B. Received in fixative is one container labeled with the patient's name and designated Left hand lesion. The specimen consists of a light-francis shave biopsy of skin measuring 0.8 x 0.5 x 0.1cm. The specimen is inked and totally submitted in one cassette. C. Received in fixative is one container labeled with the patient's name and designated Left forearm lesion. The specimen consists of an irregular fragment of francis excised skin that has been oriented. The specimen measures 1.5 x 1.0 x 0.2cm and is differentially inked as follows: lateral-black, medial-blue, proximal- red, distal-yellow. The specimen is serially sectioned and totally submitted in one cassette. 12/17/2023 TC:0 CPT:38629s6
== END | disposition home or self-care (01) ==
LOC: LABSPEC 12:14
PROVIDERS: PCP Student in an Organized Health Care Education/Training Program; Referring Provider Surgery Plastic and Reconstructive Surgery; Visit Provider Surgery Plastic and Reconstructive Surgery
DX: C44.629 Squamous cell carcinoma of skin of left upper limb, including shoulder (principal); L57.8 Other skin changes due to chronic exposure to nonionizing radiation; L57.0 Actinic keratosis
CPT/HCPCS: 88305

== ENCOUNTER → 2023-12-31 | Outpatient (CLI) | payer MEDICARE, SELFPAY | END | disposition home or self-care (01) | LOC: LABSPEC 13:45 | PROVIDERS: PCP Student in an Organized Health Care Education/Training Program; Referring Provider Nurse Practitioner Family; Visit Provider Nurse Practitioner Family | DX: S51.859A Open bite of unspecified forearm, initial encounter (principal); F17.210 Nicotine dependence, cigarettes, uncomplicated; W55.01XA Bitten by cat, initial encounter | CPT/HCPCS: 87070; 87075; 87077; 87205 ==

== ENCOUNTER → 2024-01-20 | Outpatient (CLI) | payer MEDICARE, SELFPAY ==
--- NOTE | 2024-01-20 09:48 | BD_ITS ---
STUDY: DUAL ENERGY X-RAY ABSORPTIOMETRY / DXA REASON FOR EXAM: Female, 68 years old. 627.8Menopausal postmenopausal BONE DENSITY REASON FOR EXAM TECHNIQUE: Bone Mineral Density (BMD) measurements of lumbar spine and right hip were obtained. COMPARISON: None. FINDINGS: Lumbar Spine (L1-L4): g/cm2 (0.891) / T-score (-1.4) / Z-score (0.7) Findings are suggestive of osteopenia with a low fracture risk. Right Femur Total: g/cm2 (0.726) / T-score (-1.8) / Z-score (-0.3) Right Femoral Neck: g/cm2 (0.616) / T-score (-2.1) / Z-score (-0.3) BD/Dexa Bone Density Study IMPRESSION: The patient is considered osteopenic as outlined below according to World Willie Organization (WHO) criteria with a high fracture risk. Reference Information: The T-score is the number of standard deviations above or below the standard which is normal for young adults at their peak bone mineral density. The World Health Organization (WHO) interprets the T-scores as follows: Above -1 Normal bone density Between -1 and -2.5 Osteopenia Equal to / or below -2.5 Osteoporosis As a practical clinical guideline, osteopenia may be graded as follows: Mild -1 through -1.5 Moderate -1.6 through -2.0 Severe -2.1 through -2.4 The Z-score is the number of standard deviations above or below age-matched controls. A Z-score of less than -1.5 would be considered abnormal. References: 1. NIH Osteoporosis and Related Bone Diseases www osteo.org 2. International Society for Clinical Densitometry www iscd.org 3. National Osteoporosis Foundation www nof.org Electronically Signed: Francisco J Kendall MD at 13:30 EST ,
--- NOTE | 2024-01-20 09:49 | BI_ITS ---
MAMMOGRAPHY - BILATERAL SCREENING REASON FOR EXAM: Female, 68 years old. Routine annual screening examination. PERTINENT HISTORY: Non-contributory. TECHNIQUE: Digital bilateral breast vladimir (3D mammographic acquisition) in the CC and MLO projections. 2-D mediolateral oblique (MLO) and craniocaudad (CC) views of both breasts were obtained. CAD: Full Field Digital Mammography with Computer Added Detection was performed. COMPARISON: None. Baseline examination. FINDINGS: Breast Composition: There are scattered areas of fibroglandular density. There are no dominant masses or suspicious calcifications. No other significant abnormalities are identified. BI/SCRN MAMM (CAD)W/VLADIMIR BILAT IMPRESSION: Negative screening mammogram. Yearly followup mammogram recommended. (A) ASSESSMENT CATEGORY: BIRADS Category 1: Negative. A letter regarding these results will be sent to the patient by the facility within 30 days. Approximately 10% of breast cancers are not detected by mammography. A normal mammogram should not delay biopsy of a clinically suspicious abnormality. [id number] Electronically Signed: Francisco J Kendall MD at 11:02 EST ,
== END | disposition home or self-care (01) ==
PROVIDERS: PCP Student in an Organized Health Care Education/Training Program; Referring Provider Family Medicine Geriatric Medicine; Visit Provider Family Medicine Geriatric Medicine
DX: Z12.31 Encounter for screening mammogram for malignant neoplasm of breast (principal); Z78.0 Asymptomatic menopausal state
CPT/HCPCS: 77063; 77067; 77080

== ENCOUNTER 2024-02-02 14:06 | Day surgery (SDC) | payer MEDICARE, SELFPAY ==
[2024-02-02] VITALS (8 sets, daily range): BP systolic 88–147; BP diastolic 41–66; PULSE 71–78; RESP 16–18; TEMP 36.2–36.4; O2SAT 95–100; BMI 26.0
--- NOTE | 2024-02-02 14:37 | HP.PCM_ITS ---
History and Physical Date of Admission: 02/02/24 AUDREY OROURKE, is a 68 F who presents to the office today for establishment with BGI following a positive Cologuard screening. She reports difficulty chewing due to ill-fitted dentures. Denies difficulty swallowing, nausea, heartburn, reflux, abdominal pain, diarrhea. She reports bloating, but knows what foods to avoid and it doesn't last long. She takes omeprazole 20mg daily, has a formed BM every 3 to 4 days with complete evacuation and will occasionally have hematochezia from a hemorrhoid. She states salads and fruits are her preferred form of foods. She states that she knows she doesn't drink enough water. ROS Const Constitutional: Positive for fatigue, frequent falls, weakness and weight change; No chills Eyes Eyes: No change in vision ENT ENT: No abnormal hearing or difficulty swallowing Resp Respiratory: Positive for cough, chest congestion and shortness of breath sob: SOB with activity; No change in phlegm color Cardio Cardiology: Positive for leg pain with exertion; No chest pain at rest or chest pain with exertion Gastro GI: Positive for bloating, constipation and Blood in stool; No abdominal pain, belching, change in bowel habits, change in stool character, coffee ground emesis, cramping, diarrhea, heartburn, difficulty swallowing, feeling full early, excessive flatus, incontinent of stools, Vomiting blood/hematemesis, loose stools, Black,tarry stools, nausea/dyspepsia, pain with swallowing, vomiting or other Genitourinary-Female: No difficulty urinating Musc Musculoskeletal: Positive for abnormal gait, joint pain, back pain, muscle cramps, muscle weakness, numbness, tingling and leg pain with exertion Skin Skin: Positive for dry skin; No itchy eyes Neuro Neurology: Positive for abnormal gait, weakness, frequent falls, numbness and tingling; No abnormal hearing Psych Psychiatric: Positive for depression Endo Endocrine: Positive for fatigue and weight change; No cold intolerance or heat intolerance Aller/Imm Allergy/Immunologic: No food intolerance or itchy eyes Stef/Lymp Hematologic/Lymphatic: Positive for easy bleeding and easy bruising Exam Const General: cooperative, healthy appearing, comfortable and no acute distress Nutritional Appearance: overweight Orientation: alert HENRI Head: normal to inspection Ears: hearing grossly normal bilaterally Nose: external nose normal Face and sinus: normal facial exam and face symmetric Teeth and gingiva: dentures Eyes General: appearance normal, both eyes and all related structures Sclera: sclerae normal Neck Neck: full ROM Neck mass: No Chest Chest palpation & inspection: normal inspection of the chest Resp Effort & Inspection: normal respiratory effort, able to speak in complete sentences and symmetric chest movement GI Inspection: obesity Palpation: soft and no hepatosplenomegaly Skin General: ecchymosis Nails: clubbing Neuro General: patient alert, patient awake, patient oriented x3 and moves all extremities Cognition: normal cognition Speech: speech normal Gait: normal gait Extrem General: full ROM Psych Appearance: well kempt Mental Status: mental status grossly normal Mood: congruent mood Affect: normal affect Speech and Movement: speech and movement normal Attitude: cooperative Thought Process: normal Assessment and Plan Assessment and Plan (1) Encounter for screening colonoscopy: Status: Acute Plan: AUDREY OROURKE, is a 68 F who presents to the office today for establishment with BGI following a positive Cologuard screening. Discussed bowel prep for procedure and reviewed bowel hygiene. * continue omeprazole 20mg PO daily * add psyllium husk 1tsp PO QAM m3dativ; if no significant improvement in bowel habits increase to 1 tsp PO twice daily * colonoscopy for screening * office follow-up 6 months I have examined the patient and the H&P has been reviewed. There are no clinical changes since date of exam.
--- NOTE | 2024-02-02 15:10 | PRE.ANES_ITS ---
ASA Classification* ASA Classification ASA Classification: 3 Assessment & Plan Anesthesia* Anesthesia Assessment Anesthesia Assessment: Discussed sedation and/or anesthesia options, risks, benefits, and alternatives with patient/parents/legal guardian/POA. Questions invited. The patient/parents/legal guardian/POA seems to understand and agrees to proceed with anesthesia plan. Reviewed the physical assessment, medical history, allergy history and patient home medications list prior to surgery/procedure/anesthetic and documented any changes. Performed airway and anesthesia risk assessments. Anesthesia Type Anesthesia Type: MAC Anesthesia Focused Assessment* Temperature: 97.6 F Pulse Rate: 73 Blood Pressure: 147/66 Respiratory Rate: 18 Pulse Ox: 100 Airway Assessment Mouth opens: >3 cm Mallampati Score: II Focused Labs Anesthesia Preop lab: CBC WBC 12.5 K/mm3 (4.4-11.0) H 06/16/19 17:30 RBC 4.68 M/mm3 (4.2-5.4) 06/16/19 17:30 Hgb 13.9 g/dL (12.0-15.0) 06/16/19 17:30 Hct 43.2 % (37-47) 06/16/19 17:30 Plt Count 228 K/mm3 (150-450) 06/16/19 17:30 CHEMISTRY Potassium 3.8 mmol/L (3.5-5.1) 06/16/19 17:30 Sodium 135 mmol/L (136-145) L 06/16/19 17:30 BUN 9 mg/dL (7-18) 06/16/19 17:30 Creatinine 0.77 mg/dL (0.55-1.02) 06/16/19 17:30 Glucose 107 mg/dL (74-106) H 06/16/19 17:30 TSH 0.77 uIU/mL (0.358-3.74) 06/16/19 17:30 COAG Pre-Assessment Diagnosis/Proposed Procedure Planned Operative Procedure(s): COLONOSCOPY Anesthesia History 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 When Was Last Pacemaker Check QUESTION #4 FULL TEXT: You/Your Family Experience fever (hyperthermia) with Anesthesia Last Oral Intake Last Oral intake: Last Oral Intake NPO since 09:00 02/02/24 14:25 Meds taken in AM with sips of Yes 02/02/24 14:25 water? 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 Female Yes 01/27/24 14:12 HX of Motion Sickness No 01/27/24 14:12 HX of N/V After Surgery No 01/27/24 14:12 Non-Smoker No 01/27/24 14:12 Duration of Surgery greater No 01/27/24 14:12 than 60 minutes Number of Risk Factors 1 01/27/24 14:12 PONV Score Low Risk 01/27/24 14:12 Height & Weight Height & Weight: Anesthesia: Height & Weight Height 5 ft 5 in 02/02/24 14:25 Weight: 71 kg 02/02/24 14:25 Body Mass Index (BMI) 26.0 02/02/24 14:25 Respiratory Assessment Respiratory Assessment - station air traffic control specialist: Respiratory Tract Infection Hx - station air traffic control specialist Hx Respiratory Tract Infection No 01/27/24 14:12 STOP Sleep Apnea STOP Sleep Apnea - station air traffic control specialist: STOP Sleep Apnea - station air traffic control specialist Hx Hypertension Yes: CONTROLLED WITH MEDS 01/27/24 14:12 Hx Sleep Apnea No 01/27/24 14:12 CPAP BIPAP Do you snore loudly (louder No 01/27/24 14:12 than talking or can be heard Do you often feel tired/ No 01/27/24 14:12 fatigued/ sleepy during daytime? Has anyone observed you stop No 01/27/24 14:12 breathing during sleep? STOP Results Negative 01/27/24 14:12 QUESTION #5 FULL TEXT : Do you snore loudly (louder than talking or can be heard through closed doors)? 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 Specify any problems Hx of Preganancy in last 3 No 01/27/24 14:12 Months Nurse Filling Out Transfusion [id number] 01/27/24 14:12 & Questions: Date: 01/27/24 01/27/24 14:12 Time: 14:01/27/24 14:12 Patient unable to answer at this time (ie. 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: /Reproductive Hx- station air traffic control specialist Hx Now Gestational Age (in weeks): EDC: Hx Hx Para Hx Section SAB PFSH Medical History Neoplasm of skin of upper back excluding scapular region Neoplasm of skin of scalp Neoplasm of skin of upper arm Neoplasm of skin of hand Neoplasm of skin of thigh Neoplasm of skin of shoulder Neoplasm of skin of eyebrow House dust mite allergy Chronic obstructive asthma (with obstructive pulmonary disease) Aspergillus fumigatus Lung nodule seen on imaging study Perennial allergic rhinitis with seasonal variation Verrucous keratosis Wears glasses Wears dentures Cancer Seasonal allergies Uses wheelchair Easy bruising Excessive bleeding High cholesterol Restless legs Injury of back History of ulceration Gastric reflux Shortness of breath on exertion Chronic cough Leg cramps Cataract Macular degeneration History of echocardiography History of stress test Hypertension Cardiology follow-up encounter History of heart attack Neoplasm of skin of right cheek Neoplasm of skin of nasal tip Chronic back pain SVT (supraventricular tachycardia) Nicotine dependence History of non-ST elevation myocardial infarction (NSTEMI) (01/2019) Atherosclerosis of coronary artery of deering heart without angina pectoris History of chronic back pain GERD (gastroesophageal reflux disease) COPD (chronic obstructive pulmonary disease) Hyperlipidemia Essential hypertension Actinic keratosis Benign keratosis Smoker Family history of skin cancer Neoplasm of unspecified behavior of bone, soft tissue, and skin Pneumonia Neuropathy Asthma Arthritis Home Medications ?Medication ?Instructions ?Recorded ?Last Taken ?Type atenolol 50 mg tablet 50 mg PO QDAY 09/16/17 02/02/24 08:30 History budesonide-formoterol HFA 160 2 puff inhalation Q12H 09/16/17 02/02/24 08:30 History mcg-4.5 mcg/actuation aerosol inhaler (Symbicort) tiotropium bromide 2.5 2 puff inhalation QDAY 09/16/17 02/02/24 08:30 History mcg/actuation mist for inhalation (Spiriva Respimat) albuterol sulfate 90 mcg/actuation 2 puff inhalation Q4H PRN Sob &/Or 04/18/19 02/02/24 08:30 History aerosol inhaler Wheezing omeprazole 20 mg capsule,delayed 20 mg PO DAILY 04/19/19 02/02/24 08:30 History release pregabalin 100 mg capsule (Lyrica) 100 mg PO BID 06/12/19 02/02/24 08:30 History aspirin 81 mg tablet,delayed 81 mg PO DAILY 04/23/20 02/02/24 08:30 History release (Adult Low Dose Aspirin) cyclobenzaprine 10 mg tablet 10 mg PO QAM PRN MUSCLES 04/23/20 02/02/24 08:30 History rosuvastatin 40 mg tablet 40 mg PO DAILY 04/23/20 02/02/24 08:30 History epinephrine 0.3 mg/0.3 mL 0.3 mg IM Q4H PRN ALLERGIC RXN 01/02/22 Unknown History injection, auto-injector prednisone 20 mg tablet 20 - 50 mg PO DAILY PRN BREATHING 01/02/22 02/02/24 08:30 History ipratropium bromide 21 mcg (0.03 2 spray intranasal BID-TID PRN 05/18/22 02/02/24 08:30 Rx %) nasal spray allergy symptoms #30 mL coenzyme Q10 100 mg capsule 100 mg PO QDAY 08/05/23 02/02/24 08:30 History ipratropium 0.5 mg-albuterol 3 mg 3 ml inhalation DAILY PRN 08/05/23 02/02/24 08:30 History (2.5 mg base)/3 mL nebulization shortness of breath soln hydrocodone 7.5 mg-acetaminophen 1 tab PO TID PRN pain 12/17/23 Unknown History 325 mg tablet Allergy/AdvReac Type Severity Reaction Status Date / Time bee venom protein (honey bee) Allergy Severe Anaphylaxis Verified 02/02/24 14:21 Penicillins Allergy Severe Anaphylaxis Verified 02/02/24 14:21 clemastine (From Tavist) Allergy Intermediate Unknown Verified 02/02/24 14:21 pseudoephedrine (From Tavist) Allergy Intermediate Unknown Verified 02/02/24 14:21 meloxicam Allergy Vomiting Verified 02/02/24 14:21 tramadol AdvReac Nausea/Vom/ Verified 02/02/24 14:21 Diarrhea Family History Mother Heart disease Hypertension High cholesterol Osteoporosis Skin cancer CVA (cerebral vascular accident) Father Heart disease Hypertension High cholesterol CAD (coronary artery disease) Myocardial infarction CVA (cerebral vascular accident) Brother Asthma Seizures Other Family history of skin cancer Surgical History History of actinic keratosis History of cardiac catheterization History of D&C History of selective injection of anesthetic agent around lumbar nerve root Spinal cord stimulator status (~06/2020) History of discectomy (01/2019) History of hemilaminectomy (01/13/19) History of left heart catheterization (01/11/19) Social History household members: none Smoking Status: Current every day smoker tobacco type: cigarettes alcohol intake: never substance use type: does not use caffeine: Yes Review of Systems (Anesthesia) ROS Narrative System reviewed and no additional complaints, except as documented.
--- NOTE | 2024-02-02 15:15 | COLBX_PTH ---
PATIENT: AUDREY OROURKE LOC: [facility] U#:[id number] AGE/SX: 68/F ROOM: RE02/02/[address]: Dr. Maximino Navarro DO : 1955 BED: DIS: 02/02/2024 SPEC #: [id number] RECD: 02/04/24 09:04 STATUS: YUE RESundeep #: [id number] DELONTE: 02/02/24 15:[address]: Maximino Navarro DEPT: SURGICAL PATHOLOGY RECD BY: Kodak Shultz ENTERED: 02/04/24 09:53 SP TYPE: COLON BX OT DR: Dr. Julian Florence MD Tissues: A - Ascending colon B - Sigmoid colon biopsy Procedures: Surgery Specimen Level IV HEADER OPERATION: Colonoscopy, polypectomy with cold snare PRE-OP DIAGNOSIS: Encounter for screening colonoscopy TISSUE SUBMITTED: A- Ascending colon polyp cold snare, B- Rectosigmoid polyp cold snare MICROSCOPIC DIAGNOSIS A. Ascending colon polyp, biopsy: Fragments of tubular adenoma. B. Rectosigmoid colon polyp, biopsy: Tubular adenoma. AM. 02/07/2024 MICROSCOPIC DESCRIPTION Slides are reviewed. GROSS DESCRIPTION A. Received in fixative is one container labeled with the patient's name and designated Ascending colon biopsy. The specimen consists of multiple irregular fragments of light francis soft tissue that in aggregate measure 1.5 x 0.6 x 0.1 cm. The specimen is totally submitted in one cassette. B. Received in fixative is one container labeled with the patient's name and designated Rectosigmoid polyp. The specimen consists of a single polypoid fragment of francis tissue measuring 1.5 x 1.0 x 0.6cm. The specimen is bisected and totally submitted in one cassette. AM. 02/04/2024 TC:1 CPT:26398h6
--- NOTE | 2024-02-02 16:11 | PCM.POST.ANE ---
Anesthesia: Postop Eval I Current Vital Signs Temperature: 97.1 F Pulse Rate: 71 Blood Pressure: 89/44 Respiratory Rate: 16 Pulse Ox: 98 Oxygen Delivery Method: Room Air Assessment Airway patent: Yes Spontaneous unlabored respirations: Yes Mental status: Asleep nausea: No Vomiting: No Anesthesia Complication: No Fluid Hydration Crystalloid volume administer (ml): 60 Total IV fluid infused: 60 Progress Note Anesthesia document: Postop Eval 1 completed: Yes
--- NOTE | 2024-02-02 16:18 | OP.COLON_ITS ---
Patient Name: Jovita Dumont Procedure Date: 02/02/2024 3:24 PM Date of : 1955 Age: 68 Procedure: Colonoscopy Indications: Screening for colorectal malignant neoplasm Providers: Maximino Navarro DO Referring MD: Julian Florence MD Medicines: Monitored Anesthesia Care Patient Profile: This is a 68 year old female. Refer to note in patient chart for documentation of history and physical. Last Colonoscopy: none. The patient's first colonoscopy is today. Complications: No immediate complications. Procedure: Pre-Anesthesia Assessment: - Prior to the procedure, a History and Physical was performed, and patient medications and allergies were reviewed. The patient is competent. The risks and benefits of the procedure and the sedation options and risks were discussed with the patient. All questions were answered and informed consent was obtained. Patient identification and proposed procedure were verified by the physician in the pre-procedure area. Mental Status Examination: alert and oriented. Airway Examination: normal oropharyngeal airway and neck mobility. Respiratory Examination: clear to auscultation. CV Examination: normal. Prophylactic Antibiotics: The patient does not require prophylactic antibiotics. Prior Anticoagulants: The patient has taken no anticoagulant or antiplatelet agents except for NSAID medication. ASA Grade Assessment: II - A patient with mild systemic disease. After reviewing the risks and benefits, the patient was deemed in satisfactory condition to undergo the procedure. The anesthesia plan was to use monitored anesthesia care (MAC). Immediately prior to administration of medications, the patient was re-assessed for adequacy to receive sedatives. The heart rate, respiratory rate, oxygen saturations, blood pressure, adequacy of pulmonary ventilation, and response to care were monitored throughout the procedure. The physical status of the patient was re-assessed after the procedure. After I obtained informed consent, the scope was passed under direct vision. Throughout the procedure, the patient's blood pressure, pulse, and oxygen saturations were monitored continuously. The pediatric colonoscope was introduced through the anus and advanced to the cecum, identified by appendiceal orifice and ileocecal valve. The colonoscopy was performed without difficulty. The patient tolerated the procedure well. The quality of the bowel preparation was adequate. The ileocecal valve, appendiceal orifice, and rectum were photographed. Scope In: 3:39:08 PM Scope Withdrawal Time 0 hours 17 minutes 28 seconds Scope Out: 4:02:51 PM Total Procedure Duration Time 0 hours 23 minutes 43 seconds Findings: The perianal and digital rectal examinations were normal. Two sessile polyps were found in the recto-sigmoid colon and ascending colon. The polyps were 1 to 2 mm in size. These polyps were removed with a cold snare. Resection and retrieval were complete. To prevent bleeding post-intervention, one hemostatic clip was successfully placed. 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 There was no bleeding at the end of the procedure. Coagulation for destruction of remaining portion of lesion using heater probe was successful. Estimated blood loss was minimal. Impression: - Two 1 to 2 mm polyps at the recto-sigmoid colon and in the ascending colon, removed with a cold snare. Resected and retrieved. Clip was placed. 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 Treated with a heater probe. Recommendation: - Repeat colonoscopy in 3 years for surveillance. - Continue present medications. Procedure Code(s): --- Professional --- 03742, Colonoscopy, flexible; with removal of tumor(s), polyp(s), or other lesion(s) by snare technique CPT copyright 2021 [employer]. All rights reserved. The codes documented in this report are preliminary and upon radio operator review may be revised to meet current compliance requirements. Maximino Navarro DO 02/02/2024 4:17:29 PM This report has been signed electronically. Number of Addenda: 0 Note Initiated On: 02/02/2024 3:24 PM
--- NOTE | 2024-02-02 16:18 | OP.CCLET_ITS ---
02/02/2024 Julian Florence MD [address] [place] [address] Re : Colonoscopy procedure for Jovita Dumont Dear Dr. Florence This procedure was performed on Friday, February 02, 2024. My impressions and recommendations are as follows: Impressions : - Two 1 to 2 mm polyps at the recto-sigmoid colon and in the ascending colon, removed with a cold snare. Resected and retrieved. Clip was placed. 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 Treated with a heater probe. Recommendations : - Repeat colonoscopy in 3 years for surveillance. - Continue present medications. My findings are described in the full procedure note, which is enclosed. If I can be of further assistance, please feel free to contact me at . Sincerely, Maximino Navarro, 02/02/2024 4:17:29 PM This report has been signed electronically.
--- NOTE | 2024-02-02 16:54 | PCM.POSTANE2 ---
Anesthesia Postop Eval I Sum Postop Eval Completion status Anesthesia document: Postop Eval 1 completed: Yes Anesthesia Postop Eval I Summary Anesthesia Postop Eval I Summary: Anesthesia Postop Eval I: Assessment Summary Airway patent Yes 02/02/24 16:12 [email or web address] Spontaneous unlabored Yes 02/02/24 16:12 [email or web address] respirations Mental status Asleep 02/02/24 16:12 [email or web address] nausea No 02/02/24 16:12 [email or web address] Vomiting No 02/02/24 16:12 [email or web address] Anesthesia Postop Eval I: Fluid Summary Crystalloid volume administer 60 02/02/24 16:12 [email or web address] (ml) Colloids volume administered ( ml) Blood Product volume administered (ml) Total IV fluid infused 60 02/02/24 16:12 [email or web address] Anesthesia Postop Eval I: Summary Notes Anesthesia Complication No 02/02/24 16:12 [email or web address] Anesthesia Complication Comment: Post-operative progress note Anesthesia: Postop Eval II Evaluation Mental status: Awake Pain Level: 0 nausea: No Vomiting: No
== END 2024-02-02 16:58 | disposition home or self-care (01) ==
LOC: EN 14:07 → AC 14:18
PROVIDERS: PCP Family Medicine Geriatric Medicine; Referring Provider Family Medicine Geriatric Medicine; Visit Provider Internal Medicine Gastroenterology
PROC: 0DJD8ZZ Inspection of Lower Intestinal Tract, Via Natural or Artificial Opening Endoscopic (ICD-10-PCS; CPT 45378; principal; 2024-02-02 15:10)
DX: Z12.11 Encounter for screening for malignant neoplasm of colon (principal); J44.9 Chronic obstructive pulmonary disease, unspecified; D12.2 Benign neoplasm of ascending colon; D12.7 Benign neoplasm of rectosigmoid junction; I25.10 Atherosclerotic heart disease of native coronary artery without angina pectoris; I10 Essential (primary) hypertension; I25.2 Old myocardial infarction; E78.00 Pure hypercholesterolemia, unspecified; K21.9 Gastro-esophageal reflux disease without esophagitis; F17.210 Nicotine dependence, cigarettes, uncomplicated; E66.3 Overweight; Z68.26 Body mass index [BMI] 26.0-26.9, adult; Z79.82 Long term (current) use of aspirin; Z79.51 Long term (current) use of inhaled steroids; Z79.899 Other long term (current) drug therapy; Z85.828 Personal history of other malignant neoplasm of skin
CPT/HCPCS: 45385; 88305; A4216; J2405

== ENCOUNTER → 2024-02-11 | Outpatient (CLI) | payer MEDICARE, SELFPAY ==
--- NOTE | 2024-02-11 12:55 | CT_ITS ---
STUDY: LOW DOSE CT LUNG CANCER SCREENING REASON FOR EXAM: Female, 68 years old. Current smoker. Patient smokes 1 pack per day for 40 years. RADIATION DOSAGE (If Supplied By Facility): CTDIvol = ( 2.01 ) mGy, DLP = ( 61.93 ) mGycm TECHNIQUE: No contrast was administered. Low dose technique was utilized (average mAS-38 and kVp 120). 1.25 mm axial source images with a slice interval of 1.25-mm were reconstructed in lung windows. 2.5 mm axial source images with a slice interval of 2.5-mm were reconstructed in lung windows. 5.0 mm axial source images with a slice interval of 5.0-mm were reconstructed in soft tissue windows. COMPARISON: Comparison is made with prior chest radiograph dated January 28, 2022. NODULES: No suspicious nodules are seen. Emphysema: Hyperinflation. Emphysematous changes within the centrilobular emphysema more prominent in the upper lobes. Endobronchial lesion: None Aorta: Atherosclerotic plaque formation of the aortic arch and descending thoracic aorta. CORONARY ARTERIES: Coronary artery calcification is seen. Heart: Unremarkable Pulmonary artery: Unremarkable Mediastinal nodes: Small mediastinal lymph nodes. Other chest and abdominal findings: CT/Low Dose CT Lung Screening IMPRESSION: Lung-RADS category 2 - Continue annual screening with LDCT in 12 months. IMPORTANT NOTES FOR USE: ACR Lung-RADS Version 1.1 Assessment Categories Release Date: 2018 Category: Coded 0-4 bases on nodule(s) with highest degree of suspicion. Negative screen is defined as categories 1 and 2; a positive screen is defined as categories 3 and 4. Category 3 and 4A nodules that are unchanged on interval CT should be coded as category 2, and individuals returned to screening in 12 months. Category 4X: Category 3 or 4 nodules with additional imaging findings that increase the suspicion of lung cancer, such as spiculation, GGN that doubles in size in 1 year, enlarged lymph notes, etc. Category Modifiers: S (significant finding unrelated to lung cancer) Electronically Signed: Francisco J Kendall MD at 10:36 EST ,
== END | disposition home or self-care (01) ==
PROVIDERS: PCP Family Medicine Geriatric Medicine; Referring Provider Nurse Practitioner Acute Care; Visit Provider Nurse Practitioner Acute Care
DX: Z12.2 Encounter for screening for malignant neoplasm of respiratory organs (principal); F17.210 Nicotine dependence, cigarettes, uncomplicated
CPT/HCPCS: 71271

== ENCOUNTER → 2024-02-25 | Outpatient (CLI) | payer MEDICARE, SELFPAY | END | disposition home or self-care (01) | LOC: LABSPEC 12:55 | PROVIDERS: PCP Family Medicine Geriatric Medicine; Referring Provider Nurse Practitioner Family; Visit Provider Nurse Practitioner Family | DX: S61.452A Open bite of left hand, initial encounter (principal); W55.01XA Bitten by cat, initial encounter | CPT/HCPCS: 87070; 87075; 87205 ==

== ENCOUNTER → 2024-03-22 | Outpatient (CLI) | payer MEDICARE, SELFPAY ==
--- NOTE | 2024-03-22 12:45 | RAD_ITS ---
EXAM: XR CERVICAL SPINE, 4 OR 5 VIEWS CLINICAL INDICATION: PAIN TECHNIQUE: Frontal, lateral and bilateral oblique views of the cervical spine. COMPARISON: No relevant prior studies available. FINDINGS: VERTEBRAE: There is bony neural foraminal narrowing on the right at C4-5 and C5-C6 and on the left at C5-6. Preserved vertebral body height. No acute fracture. No spondylolisthesis. Preservation of the normal cervical lordosis. No significant facet arthropathy. DISC SPACES: There is disc space narrowing at C5-6 and C6-7. SOFT TISSUES: Unremarkable. No prevertebral soft tissue widening. LUNG APICES: Clear. RAD/Cerv Spine 4 or 5 Views IMPRESSION: 1. No acute osseous abnormalities. 2. Degenerative changes with disc space narrowing and bony neural foraminal narrowing. Electronically Signed: Karthikeyan Michel MD at 23:40 EST ,
== END | disposition home or self-care (01) ==
LOC: MTRAD 12:40
PROVIDERS: PCP Family Medicine Geriatric Medicine; Referring Provider Clinical Nurse Specialist Adult Health; Visit Provider Clinical Nurse Specialist Adult Health
DX: M54.2 Cervicalgia (principal)
CPT/HCPCS: 72050

== ENCOUNTER → 2024-05-15 | Outpatient (CLI) | payer MEDICARE, SELFPAY | END | disposition home or self-care (01) | LOC: PSN 10:09 | PROVIDERS: PCP Student in an Organized Health Care Education/Training Program; Referring Provider Nurse Practitioner Acute Care; Visit Provider Nurse Practitioner Acute Care | DX: J44.9 Chronic obstructive pulmonary disease, unspecified (principal) | CPT/HCPCS: 94060; 94726; 94729 ==

== ENCOUNTER → 2025-02-21 | Outpatient (CLI) | payer MEDICARE, SELFPAY ==
--- NOTE | 2025-02-21 16:23 | CT_ITS ---
PROCEDURE: LOW DOSE CT LUNG SCREENING 02/21/2025 REASON FOR EXAM: CURRENT EVERY DAY SMOKER TECHNIQUE: Procedure Code: [id number] Modality: CT Procedure: LOW DOSE CT LUNG SCREENING Low-dose CT chest was performed without IV contrast. Multiplanar reformats were generated One or more dose reduction techniques were used (e.g., Automated exposure control, adjustment of the mA and/or kV according to patient size, use of iterative reconstruction technique). RADIATION DOSE SUMMARY: CTDlvol: 2.39 mGy DLP: 78.92 mGycm COMPARISON: 02/21/2024 FINDINGS: Note that evaluation of the vasculature, nitin, and soft tissues is limited in the absence of IV contrast. Streak artifact through the midthorax related to thoracic spinal stimulator leads. Heart/pericardium:Severe three-vessel coronary atherosclerosis and/or stents. Mild aortic and trace mitral annular calcification. Aorta: Moderate to advanced calcific atherosclerosis.. Pulmonary arteries: Unremarkable. Lymph nodes: Prominent but nonenlarged precarinal node, 8 mm short axis.. Lungs/pleura: Emphysema. New 6 x 5 mm LEFT upper lobe nodule (series 2, image 102). New 5 x 4 mm RIGHT upper lobe nodule (image 59). New irregular vaguely nodular airspace disease in the dependent RIGHT lower lobe with trace surrounding ground-glass. Multiple additional similar and smaller nodules, majority new, with sales representative sales manager examples annotated on series 2. Airways: Mild central bronchial wall thickening. Trace debris within the bronchus intermedius. Tiny foci of peripheral airway debris RIGHT lower lobe. Chest wall: Partially imaged ascending spinal stimulator leads with associated artifact as above.. Upper abdomen: Suboptimally evaluated due to low-dose technique and photon starvation. Small hiatal hernia containing mostly fat. Atherosclerosis.. Musculoskeletal: Spinal stimulator as above. Suspect demineralization. Mild degenerative findings.. CT/Low Dose CT Lung Screening IMPRESSION: 1. New findings suggestive of mild localized pneumonia in the RIGHT lower lobe, Lung-RADS 0S. Suggest follow-up CT chest in 1-2 months to document resolution. Numerous additional new nodules up to 6 mm as d etailed can be followed at that time. 2. Findings related to the airways greatest in the RIGHT lower lobe which may b e smoking-related, indicative of bronchitis, and/or minor aspiration in light of the above. 3. Additional description as above. Recommendations per [employer]. Lung CT Screening Reporting and Data System (Lung-RADS) v. 202 Reading Location: [id number]
== END | disposition home or self-care (01) ==
LOC: CT 16:22
PROVIDERS: PCP Student in an Organized Health Care Education/Training Program; Referring Provider Nurse Practitioner Acute Care; Visit Provider Nurse Practitioner Acute Care
DX: Z12.2 Encounter for screening for malignant neoplasm of respiratory organs (principal); F17.210 Nicotine dependence, cigarettes, uncomplicated
CPT/HCPCS: 71271